=== PATIENT | male | born 1950 | race Caucasian/White ===

== ENCOUNTER 2022-07-13 08:54 | Inpatient (IN) ==
[2022-07-13] MEDS ORDERED: SODIUM CHLORIDE 0.9% 1000ML 1,000 ML IV STA (09:07)
--- NOTE | 2022-07-13 09:12 | Emergency Department Note ---
Impression & Plan Elevated troponin ADMIT ED Provider Note HPI: The patient is a 71-year-old gentleman with history of insulin-dependent diabetes, who presents emergency department chief complaint of weakness and diminished appetite. Patient states that for the past 2 weeks he has had a sensation that he "cannot eat". Patient states he has not had any pain, has not had any vomiting, states he has not felt hungry during this time. He states he has been following his insulin regimen the way it is prescribed. Patient denies any bloody stools or hematemesis, on arrival here to the ED the patient is hemodynamically stable, he is in no acute distress on my initial assessment. ROS: - Per HPI *Outpatient medications and allergy history reviewed. *Pertinent external medical records reviewed. PE: General: Alert HEENT: Normocephalic, trachea midline Eyes: Extraocular eye movement is intact, no scleral erythema Pulmonary: Clear to auscultation bilaterally, no wheezing Cardio: Regular rate and rhythm GI: Abdomen is soft, nontender : No suprapubic tenderness MSK: No evidence of trauma or malformation of the extremities, no edema Skin: No evidence of rash Neuro: Alert, no focal deficits Psychiatric: Cooperative diagnostic assistant: (As interpreted by myself): - An order was placed for continuous cardiac monitoring - Patient was noted to be in sinus rhythm with a rate of 90 EKG: (As interpreted by myself): Rate: 87 Rhythm: Normal sinus rhythm Intervals: QTc 527, otherwise within normal limits ST changes: No ST elevation Time: 09 Interventions provided in ED: -IV fluid bolus, IV ceftriaxone Medical Decision Making: Patient presented to the emergency department with symptoms of some generalized weakness, states he has had some diminished appetite and weight loss over the past several weeks. On arrival here to the ED the patient is hemodynamically stable. IV was established and lab work obtained, patient was placed on adjudication specialist. Lab work shows multiple abnormalities including leukocytosis of 17.9, mild anemia at 11.8, hyponatremia 126, hypochloremia at 89, patient's BUN is also slightly elevated at 35, glucose is 254 (patient is a known diabetic). In addition, troponin elevation at 50.3. Patient denies any exertional symptoms of chest pain or shortness of breath recently, denies any current chest pain or shortness of breath. EKG does not show any acute ischemic changes. CT imaging of the abdomen pelvis was obtained that does not show any acute surgical abnormality. On my reassessment patient states that he feels at b aseline, denies any focal complaint of pain. Urinalysis did return concerning for infection, both nitrite and leukocyte esterase positive, will send for culture and patient will be treated with ceftriaxone given his history of diabetes in addition to significant leukocytosis. Given the patient's multiple abnormalities on lab work and urinalysis, I feel he would benefit from admission. His symptoms may be secondary to his hyponatremia or ongoing infection. [facility] hospitalist service was consulted, case was discussed with the on-call midlevel provider, and patient was placed for admission in stable condition. Consultants: Hospitalist service, [facility] Disposition discussion held by myself with: Patient Diagnosis: 1. Urinary tract infection, acute 2. Leukocytosis 3. Elevated BUN 4. Hyponatremia, acute 5. Hyperglycemia without DKA 6. Elevated high-sensitivity troponin level Disposition: Admission Rob Zaragoza DO Emergency Medicine Allergies Allergies Allergy/AdvReac Type Severity Reaction Status Date / Time No Known Allergies Allergy Mild Unverified 07/13/22 09:58 Home Meds Home Medications Medication Instructions Recorded Confirmed aspirin 81 mg capsule 81 mg PO DAILY 07/13/22 07/13/22 hydrochlorothiazide 12.5 mg capsule 12.5 mg PO BID 07/13/22 07/13/22 insulin NPH isoph U-100 human 100 14 unit subcut BID 07/13/22 07/13/22 unit/mL subcutaneous suspension (Novolin N NPH U-100 Insulin isophane) insulin regular human 100 unit/mL 6 unit subcut QDD 07/13/22 07/13/22 injection solution (Novolin R Regular U-100 Insulin) insulin regular human 100 unit/mL 8 unit subcut QAM 07/13/22 07/13/22 injection solution (Novolin R Regular U-100 Insulin) lisinopril 30 mg tablet 30 mg PO QAM 07/13/22 07/13/22 metformin 500 mg tablet,extended 1,000 mg PO QDD 07/13/22 07/13/22 release 24 hr pravastatin 10 mg tablet 10 mg PO QAM 07/13/22 07/13/22 vitamins A,C,A-ryru-ukfoow 2,148 1 tab PO QAM 07/13/22 07/13/22 mcg-113 mg-45 mg-17.4 mg tablet (PreserVision AREDS) Results & Data (ED) Vital Signs Vital Signs - 24 hr 07/13/22 09:01 07/13/22 09:39 07/13/22 09:25 Temperature 37.6 C H Temperature Source Temporal Artery Scan Pulse Rate 90 86 Pulse Rhythm Regular Pulse Strength Normal Respiratory Rate 18 Respiratory Effort / Characteristics Non-Labored Spontaneous Respiratory Depth Normal Respiratory Pattern Regular Blood Pressure 108/62 Blood Pressure Mean 77 Blood Pressure Position Sitting Pulse Oximetry 98 95 Oxygen Delivery Method Room Air Room Air Sepsis Recent Fever Within 48 Hours No Sepsis New/Unexplained Change in Mental Status No Sepsis Action Taken by Nursing No Action Required Laboratory Data 07/13/22 09:30 07/13/22 09:30 Lab Results 07/13/22 07/13/22 07/13/22 Range/Units 09:30 09:30 09:30 WBC 17.96 H (4.8-10.8) K/ul RBC 3.97 L (4.70-6.10) M/uL Hgb 11.8 L (14.0-18.0) g/dl Hct 34.5 L (42.0-52.0) % MCV 86.9 (80.0-100.0) fL MCH 29.7 (25.0-34.0) pg MCHC 34.2 (32.0-36.0) g/dL RDW Std Deviation 40.1 (36.4-46.3) fL RDW Coeff of Ariane 12.6 (11.5-14.5) % Plt Count 327 (130-400) K/uL MPV 11.0 (9.4-12.4) fL Immature Gran % (Auto) 1.1 % Neut % (Auto) 85.6 % Lymph % (Auto) 6.0 % [place] % (Auto) 6.3 % Eos % (Auto) 0.7 % Baso % (Auto) 0.3 % Neut # (Auto) 15.39 H (1.40-6.50) K/uL Lymph # (Auto) 1.07 L (1.2-3.4) K/uL [place] # (Auto) 1.13 H (0.11-0.59) K/uL Eos # (Auto) 0.13 (0-0.50) K/uL Baso # (Auto) 0.05 (0-0.2) K/uL Immature Gran # (Auto) 0.19 (0.01-0.20) K/uL PT 12.2 H (9.0-12.0) Seconds INR 1.2 H (0.9-1.1) Sodium 126 L (136-145) mmol/L Potassium 4.2 (3.5-5.1) mmol/L Chloride 89 L (98-107) mmol/L Carbon Dioxide 26 (21-32) mmol/L Anion Gap 11 (3-11) BUN 35 H (6-23) mg/dl Creatinine 1.35 (0.6-1.4) mg/dl Est Cr Clr Drug Dosing 55.5 ml/min Est GFR ( Amer) 61.2 ml/min Est GFR (Non-Af Amer) 52.8 ml/min BUN/Creatinine Ratio 25.9 H (10-20) Glucose 254 H (70-99(Fasting)) mg/dl Calcium 8.6 (8.5-10.1) mg/dl Total Bilirubin 1.7 H (0.2-1.0) mg/dl AST 29 (13-39) U/L ALT 33 (7-52) U/L Alkaline Phosphatase 103 (34-104) U/L Troponin I High Sens 50.3 H* (0-20) pg/ml Total Protein 6.5 (6.0-8.3) gm/dl Albumin 2.9 L (3.4-5.0) gm/dl Globulin 3.6 (2.5-4.0) gm/dl Albumin/Globulin Ratio 0.8 L (0.9-2) Lipase 5 L (11-82) U/L Urine Color Urine Appearance (Clear) Urine pH (4.5-7.5) Ur Specific [place] (1.000-1.030) Urine Protein (Negative) Urine Glucose (UA) (Negative) Urine Ketones (Negative) Urine Blood (Negative) Urine Nitrite (Negative) Urine Bilirubin (Negative) Urine Urobilinogen (Negative) Ur Leukocyte Esterase (Negative) SARS-CoV-2 (PCR) (Negative) Influenza Type A (PCR) (Neg) Influenza Type B (PCR) (Neg) RSV (RT-PCR) (Neg) 07/13/22 07/13/22 Range/Units 09:37 10:48 WBC (4.8-10.8) K/ul RBC (4.70-6.10) M/uL Hgb (14.0-18.0) g/dl Hct (42.0-52.0) % MCV (80.0-100.0) fL MCH (25.0-34.0) pg MCHC (32.0-36.0) g/dL RDW Std Deviation (36.4-46.3) fL RDW Coeff of Ariane (11.5-14.5) % Plt Count (130-400) K/uL MPV (9.4-12.4) fL Immature Gran % (Auto) % Neut % (Auto) % Lymph % (Auto) % [place] % (Auto) % Eos % (Auto) % Baso % (Auto) % Neut # (Auto) (1.40-6.50) K/uL Lymph # (Auto) (1.2-3.4) K/uL [place] # (Auto) (0.11-0.59) K/uL Eos # (Auto) (0-0.50) K/uL Baso # (Auto) (0-0.2) K/uL Immature Gran # (Auto) (0.01-0.20) K/uL PT (9.0-12.0) Seconds INR (0.9-1.1) Sodium (136-145) mmol/L Potassium (3.5-5.1) mmol/L Chloride (98-107) mmol/L Carbon Dioxide (21-32) mmol/L Anion Gap (3-11) BUN (6-23) mg/dl Creatinine (0.6-1.4) mg/dl Est Cr Clr Drug Dosing ml/min Est GFR ( Amer) ml/min Est GFR (Non-Af Amer) ml/min BUN/Creatinine Ratio (10-20) Glucose (70-99(Fasting)) mg/dl Calcium (8.5-10.1) mg/dl Total Bilirubin (0.2-1.0) mg/dl AST (13-39) U/L ALT (7-52) U/L Alkaline Phosphatase (34-104) U/L Troponin I High Sens (0-20) pg/ml Total Protein (6.0-8.3) gm/dl Albumin (3.4-5.0) gm/dl Globulin (2.5-4.0) gm/dl Albumin/Globulin Ratio (0.9-2) Lipase (11-82) U/L Urine Color [place] Urine Appearance Cloudy A (Clear) Urine pH 5.0 (4.5-7.5) Ur Specific [place] 1.021 (1.000-1.030) Urine Protein Trace H (Negative) Urine Glucose (UA) Trace H (Negative) Urine Ketones 1+ H (Negative) Urine Blood Negative (Negative) Urine Nitrite Positive A (Negative) Urine Bilirubin 1+ H (Negative) Urine Urobilinogen Positive H (Negative) Ur Leukocyte Esterase Trace H (Negative) SARS-CoV-2 (PCR) NEGATIVE (Negative) Influenza Type A (PCR) Negative (Neg) Influenza Type B (PCR) Negative (Neg) RSV (RT-PCR) Negative (Neg) Administered Medications Discontinued Medications Sodium Chloride (Nss 1000ml) 1,000 mls @ 999 mls/hr IV .Q1H1M STA Stop: 07/13/22 10:07 Last Infusion: 07/13/22 11:06 Dose: 0 mls/hr Documented By: Admin: 07/13/22 10:05 Dose: 999 mls/hr Documented By: VERONICA Ioversol (Optiray 350 100ml) 88 ml IV ONCE ONE Stop: 07/13/22 10:57 Last Admin: 07/13/22 10:56 Dose: 88 ml Documented By: EDK Imaging Data Radiologist's Impression: Abdomen/Pelvis CT 07/13/22 09:25 CT OF THE ABDOMEN AND PELVIS WITH CONTRAST CLINICAL HISTORY: Nausea and weight loss. COMPARISON STUDY: None. TECHNIQUE: Following IV administration of 88 mL of Optiray, axial images of the abdomen and pelvis were obtained from the lung bases to the proximal femurs. Images were reviewed in the axial, sagittal, and coronal planes. IV contrast was administered without complication. Automated exposure control was utilized for the study. A dose lowering technique was utilized adhering to the principles of ALARA. CT DOSE: 812.07 mGy.cm FINDINGS: Lung bases are unremarkable. There is apparent circumferential wall thickening of the esophagus. A small hiatal hernia is present. Liver, spleen, adrenal glands, right kidney are unremarkable. There is no pneumatosis, free air or portal venous gas. A cyst within the upper pole of the left kidney is noted. Pancreatic glandular atrophy is noted. No biliary or pancreatic ductal dilatation is present. The appendix is normal. The caliber and wall thickness of small and large bowel are normal. There is no lymphadenopathy. There is no ascites. No suspicious osseous lesions are present. Right femoral internal fixation is incidentally noted. IMPRESSION: 1. No acute process within the abdomen or pelvis. 2. Circumferential wall thickening of the distal esophagus. Although this could be due to underdistention, esophagitis could appear similar. Small hiatal hernia. 3. No bowel obstruction. No bowel wall thickening. ACT 112: Negative or not required by law. Electronically signed by: Russell Jeffries M.D. 07/13/2022 11:22 AM Chest X-Ray 07/13/22 10:49 XR chest 1V portable CLINICAL HISTORY: weakness COMPARISON STUDY: Chest radiograph June 15, 2009. FINDINGS: Lung volumes are normal. Lungs are clear. There is no pneumothorax or pleural effusion. Cardiac size is stable. Mediastinal contours are normal. There is no evidence for pulmonary edema. IMPRESSION: No acute cardiopulmonary findings. ACT 112: Negative or not required by law. Electronically signed by: Russell Jeffries M.D. 07/13/2022 11:24 AM Discharge Plan Visit Data Chief Complaint: Illness Stated Complaint: UNABLE TO EAT FOR 2 WEEKS, LETHARGIC ED Provider: Rob Zaragoza Discharge Problem: Elevated troponin Forms Stand Alone Forms: My [facility] Prescriptions Prescriptions: No Action pravastatin 10 mg tablet 10 mg PO QAM Novolin R Regular U-100 Insuln 100 unit/mL solution 6 unit subcut QDD Novolin R Regular U-100 Insuln 100 unit/mL solution 8 unit subcut QAM Novolin N NPH U-100 Insulin 100 unit/mL suspension 14 unit SUBCUT BID hydrochlorothiazide 12.5 mg capsule 12.5 mg PO BID lisinopril 30 mg tablet 30 mg PO QAM metformin 500 mg tablet extended release 24 hr 1,000 mg PO QDD PreserVision AREDS 2,148 mcg-113 mg-45 mg-17.4mg Tablet 1 tab PO QAM Rx Instructions: administer with AM and PM meals aspirin 81 mg Capsule 81 mg PO DAILY Referrals Referrals: PCP,NO [Physician] -
[2022-07-13 10:02] LABS: Basophils # (auto) 0.05 K/uL (0-0.2); Basophils % (auto) 0.3 %; Eosinophils # (auto) 0.13 K/uL (0-0.50); Eosinophils % (auto) 0.7 %; Hematocrit (blood only) 34.5 % (42.0-52.0); Hemoglobin 11.8 g/dl (14.0-18.0); Immature Granulocytes # (auto) 0.19 K/uL (0.01-0.20); Immature Granulocytes % (auto) 1.1 %; Lymphocytes # (auto) 1.07 K/uL (1.2-3.4); Mean Corpuscular Hemoglobin 29.7 pg (25.0-34.0); Mean Corpuscular Hgb Conc 34.2 g/dL (32.0-36.0); Mean Corpuscular Volume 86.9 fL (80.0-100.0); Monocytes # (auto) 1.13 K/uL (0.11-0.59); Monocytes % (auto) 6.3 %; Neutrophils # (auto) 15.39 K/uL (1.40-6.50); Neutrophils % (auto) 85.6 %; Platelet Count 327 K/uL (130-400); RDW Coefficient of Variation 12.6 % (11.5-14.5); RDW Standard Deviation 40.1 fL (36.4-46.3); Red Blood Count 3.97 M/uL (4.70-6.10); White Blood Count 17.96 K/ul (4.8-10.8)
[2022-07-13 10:23] LABS: Albumin Globulin Ratio 0.8 (0.9-2); Albumin Level 2.9 gm/dl (3.4-5.0); BUN Creatinine Ratio 25.9 (10-20); Bilirubin,Total 1.7 mg/dl (0.2-1.0); Calcium 8.6 mg/dl (8.5-10.1); Creatinine Clr Calc Pharmacy 55.5 ml/min; Est GFR (African American) 61.2 ml/min; Est GFR (Non-African American) 52.8 ml/min; Globulin 3.6 gm/dl (2.5-4.0); Potassium 4.2 mmol/L (3.5-5.1); Total Protein 6.5 gm/dl (6.0-8.3)
[2022-07-13 10:27] LABS: Influenza A virus by PCR Negative (Neg); Influenza B virus by PCR Negative (Neg); RSV by PCR Negative (Neg); SARS CoV2 RNA(COVID-19) Ceph NEGATIVE (Negative)
[2022-07-13 10:31] LABS: Troponin I High Sensitivity 50.3 pg/ml (0-20)
[2022-07-13 10:32] LABS: INR 1.2 (0.9-1.1); Prothrombin Time 12.2 Seconds (9.0-12.0)
[2022-07-13] MEDS ORDERED: OPTIRAY 350 100ml IV ONE (10:56)
[2022-07-13 11:16] LABS: Appearance Urine Cloudy (Clear); Bacteria Urine Automated Negative (Negative); Blood Urine Negative (Negative); Color Urine Orange; Glucose Urine UA Trace (Negative); Ketones Urine 1+ (Negative); Leukocyte Esterase Urine Trace (Negative); Nitrite Urine Positive (Negative); Protein Urine Trace (Negative); Specific Gravity Urine 1.021 (1.000-1.030); Urobilinogen Urine Positive (Negative)
--- NOTE | 2022-07-13 11:23 | CT Scan Report ---
CT OF THE ABDOMEN AND PELVIS WITH CONTRAST CLINICAL HISTORY: Nausea and weight loss. COMPARISON STUDY: None. TECHNIQUE: Following IV administration of 88 mL of Optiray, axial images of the abdomen and pelvis we re obtained from the lung bases to the proximal femurs. Images were reviewed in the axial, sagittal, and coronal planes. IV contrast was administered without complication. Automated exposure control wa s utilized for the study. A dose lowering technique was utilized adhering to the principles of ALARA . CT DOSE: 812.07 mGy.cm FINDINGS: Lung bases are unremarkable. There is apparent circumferential wall thickening of the esoph karen. A small hiatal hernia is present. Liver, spleen, adrenal glands, right kidney are unremarkable. There is no pneumatosis, free air or portal venous gas. A cyst within the upper pole of the left kid aguilar is noted. Pancreatic glandular atrophy is noted. No biliary or pancreatic ductal dilatation is pr esent. The appendix is normal. The caliber and wall thickness of small and large bowel are normal. Th ere is no lymphadenopathy. There is no ascites. No suspicious osseous lesions are present. Right femo ral internal fixation is incidentally noted. IMPRESSION: 1. No acute process within the abdomen or pelvis. 2. Circumferential wall thickening of the distal esophagus. Although this could be due to underdisten tion, esophagitis could appear similar. Small hiatal hernia. 3. No bowel obstruction. No bowel wall thickening. ACT 112: Negative or not required by law. Electronically signed by: Russell Jeffries M.D. 07/13/2022 11:22 AM
--- NOTE | 2022-07-13 11:26 | XRay Report ---
XR chest 1V portable CLINICAL HISTORY: weakness COMPARISON STUDY: Chest radiograph June 15, 2009. FINDINGS: Lung volumes are normal. Lungs are clear. There is no pneumothorax or pleural effusion. Car diac size is stable. Mediastinal contours are normal. There is no evidence for pulmonary edema. IMPRESSION: No acute cardiopulmonary findings. ACT 112: Negative or not required by law. Electronically signed by: Russell Jeffries M.D. 07/13/2022 11:24 AM
[2022-07-13 11:27] LABS: Bilirubin Urine 1+ (Negative)
[2022-07-13] MEDS ORDERED: cefTRIAXone SODIUM 2,000 MG/70 ML BAG IV STA (11:30)
--- NOTE | 2022-07-13 11:38 | Electrocardiogram Report ---
Test Reason : Blood Pressure : / mmHG Vent. Rate : 087 BPM Atrial Rate : 087 BPM P-R Int : 134 ms QRS Dur : 076 ms QT Int : 438 ms P-R-T Axes : 054 058 002 degrees QTc Int : 527 ms Normal sinus rhythm Possible Inferior infarct , age undetermined Prolonged QT Abnormal ECG When compared with ECG of 15-JUN-2009 10:06, Vent. rate has increased BY 30 BPM Borderline criteria for Inferior infarct are now Present T wave inversion now evident in Inferior leads QT has lengthened Confirmed by Parrish Osorio ([id number]) on 07/13/2022 11:37:44 AM Referred By: REFERRED SELF Confirmed By:Dennys Osorio
[2022-07-13 11:56] LABS: Cast Urine Automated >30 /lpf (0-5)
--- NOTE | 2022-07-13 12:06 | History & Physical Report ---
Date of Service July 13, 2022 Assessment & Plan (1) Acute hyponatremia: (2) Leukocytosis: (3) Poor appetite: (4) Elevated troponin: (5) T2DM (type 2 diabetes mellitus): (6) HTN (hypertension): (7) HLD (hyperlipidemia): Plan This is a 71-year-old male who has significant past medical history of insulin- dependent T2DM, HTN, HLD, idiopathic thrombocytopenia who presents to ED secondary to generalized weakness and decreased appetite x2 weeks. Acute hyponatremia Poor appetite x2 weeks Circumferential wall thickening of esophagus on CT scan Generalized weakness Admit to med telemetry Corrected sodium for hyperglycemia is 128 No prior history of hyponatremia Likely correlates to lack of appetite and poor intake over the last 2 weeks; however uncertain what is driving that at this time, pt reports started day after flu shot Obtain urine sodium, urine osm, serum osm hold HCTZ give gentle maintenance fluid for now 80 cc/h x 2 L PT/OT consult retail supervisor, low albumin, obtain prealb in a.m. Leukocytosis Abnormal urinalysis Urine shows positive nitrites, leukocyte esterase but negative bacteria He received 2 g Rocephin in ED, will continue for now until blood and urine culture results Urine culture likely negative, will continue IV antibiotics due to leukocytosis until infection ruled out Elevated troponin Patient denies chest pain, shortness of breath or exertional symptoms EKG was with t wave inversion II and III We will trend troponin for now repeat ecg in a.m. echocardiogram Prolonged QTC avoid QTc prolonging meds Anemia H&H 11.8 and 34.5 with normal indices Obtain anemia panel in a.m. Abnormal CT scan Circumferential wall thickening of esophagus, possible esophagitis Could be possible source of patient's decreased intake although denies any GERD symptoms Start PPI oral once daily Consider GI referral as outpatient for endoscopy if persists Insulin-dependent T2DM Continue NPH and NovoLog per protocol Last A1c 7.3 on 06/29/2022 Hold metformin Hypertension Continue lisinopril but hold HCTZ in setting of hyponatremia Hyperlipidemia Continue statin DVT px: SQ Lovenox Dispo: med tele, PT/OT consults placed FULL CODE PCP: Dr. Allison Pt was seen and examined in collaboration with Dr. Mata, please see addendum History of Present Illness Chief Complaint: Generalized weakness decreased appetite x2 weeks. Primary Care Provider: Milka Allison MD This is a 71-year-old male who has significant past medical history of insulin-dependent T2DM, HTN, HLD, idiopathic thrombocytopenia who presents to ED secondary to generalized weakness and decreased appetite x2 weeks. 2 weeks ago today he got a flu shot. The next day he woke up and felt like he was sick. Since then he has been having a difficult time eating and that has lead to general weakness. He denies dysphagia and generally just has no appetite. He denies f/c/s, REEVES, dizziness, lightheaded, chest pain, sob, edema, cough, URI sx, nausea, abd pain or diarrhea, and myalgia/arthralgia. He hasn't moved his bowels in 4-5 days. He denies any dysuria, hematuria or increased urinary urgent. He lives with his brother. Typically at home he is able to ambulate w/o assist. Hx of heart burn in past but not recently. ED patient made hemodynamically stable. Lab work notable for significant leukocytosis at 17.96 with predominant neutrophilia, H&H 11.8 and 34.5, sodium 126, chloride 89, BUN 35, creatinine 1.35, glucose 254, total bilirubin 1.7, elevated troponin 50.3 albumin at 2.9. Initial urinalysis revealing possible UTI. CT abdomen pelvis revealed circumferential wall thickening distal esophagus, although this could be underdistention esophagitis could appear similar. Chest x-ray revealed no cardiopulmonary abnormality. He received IV fluids as well as IV ceftriaxone. Allergies Allergy/AdvReac Type Severity Reaction Status Date / Time No Known Allergies Allergy Mild Unverified 07/13/22 09:58 Home Medications Medication Instructions Recorded Confirmed Type aspirin 81 mg capsule 81 mg PO DAILY 07/13/22 07/13/22 History hydrochlorothiazide 12.5 mg capsule 12.5 mg PO DAILY 07/13/22 07/13/22 History insulin NPH isoph U-100 human 100 14 unit subcut BID 07/13/22 07/13/22 History unit/mL subcutaneous suspension (Novolin N NPH U-100 Insulin isophane) insulin regular human 100 unit/mL 6 unit subcut QDD 07/13/22 07/13/22 History injection solution (Novolin R Regular U-100 Insulin) insulin regular human 100 unit/mL 8 unit subcut QAM 07/13/22 07/13/22 History injection solution (Novolin R Regular U-100 Insulin) lisinopril 30 mg tablet 30 mg PO QAM 07/13/22 07/13/22 History metformin 500 mg tablet,extended 1,000 mg PO QDD 07/13/22 07/13/22 History release 24 hr pravastatin 10 mg tablet 10 mg PO QAM 07/13/22 07/13/22 History vitamins A,C,H-sszp-oaywch 2,148 1 tab PO QAM 07/13/22 07/13/22 History mcg-113 mg-45 mg-17.4 mg tablet (PreserVision AREDS) Past Med/Surg History Medical History (Updated 07/13/22 @ 13:16 by Amee Le PA-C) HLD (hyperlipidemia) HTN (hypertension) T2DM (type 2 diabetes mellitus) Thrombocytopenia Surgical History (Updated 07/13/22 @ 12:03 by Amee Le PA-C) Hx of fracture of femur Family History (Updated 07/13/22 @ 12:20 by Amee Le PA-C) Mother Breast cancer Father Coronary heart disease Social History (Updated 07/13/22 @ 12:17 by Amee Le PA-C) Smoking Status: Former smoker Second Hand Exposure: Yes; Do You Dip or Chew Tobacco: Yes; Tobacco Cessation Education Requested by Patient: Yes Hx Alcohol Use: No Hx Substance Use: No Preferred Language: Iranian Communication Ability: Effective Jacquard Loom Heddles Tier Required: No Beliefs That Will Affect Care: None Current Living Situation: Other Current Living Situation Comment: lives with brother Zach Other Information That Helps Us Care for You: No Feels Safe at Home: Yes Safety Concerns: Feels Safe At This Time Assistive Devices: Glasses Review of Systems Review of Systems: All systems reviewed & are unremarkable except as noted in HPI & below Physical Exam Physical Exam: Please refer to Dr. Mata addendum for physical exam findings. Results & Data Results & Data ([facility]) Vital Signs (Past 12 Hours) Vital Signs Temp Pulse Resp BP Pulse Ox O2 Del Method 07/13/22 09:25 86 07/13/22 09:39 95 Room Air 07/13/22 09:01 37.6 C H 90 18 108/62 98 Room Air Diagnostic Findings Abdomen/Pelvis CT 07/13/22 09:25 CT OF THE ABDOMEN AND PELVIS WITH CONTRAST CLINICAL HISTORY: Nausea and weight loss. COMPARISON STUDY: None. TECHNIQUE: Following IV administration of 88 mL of Optiray, axial images of the abdomen and pelvis were obtained from the lung bases to the proximal femurs. Images were reviewed in the axial, sagittal, and coronal planes. IV contrast was administered without complication. Automated exposure control was utilized for the study. A dose lowering technique was utilized adhering to the principles of ALARA. CT DOSE: 812.07 mGy.cm FINDINGS: Lung bases are unremarkable. There is apparent circumferential wall thickening of the esophagus. A small hiatal hernia is present. Liver, spleen, adrenal glands, right kidney are unremarkable. There is no pneumatosis, free air or portal venous gas. A cyst within the upper pole of the left kidney is noted. Pancreatic glandular atrophy is noted. No biliary or pancreatic ductal dilatation is present. The appendix is normal. The caliber and wall thickness of small and large bowel are normal. There is no lymphadenopathy. There is no ascites. No suspicious osseous lesions are present. Right femoral internal fixation is incidentally noted. IMPRESSION: 1. No acute process within the abdomen or pelvis. 2. Circumferential wall thickening of the distal esophagus. Although this could be due to underdistention, esophagitis could appear similar. Small hiatal hernia. 3. No bowel obstruction. No bowel wall thickening. ACT 112: Negative or not required by law. Electronically signed by: Russell Jeffries M.D. 07/13/2022 11:22 AM Chest X-Ray 07/13/22 10:49 XR chest 1V portable CLINICAL HISTORY: weakness COMPARISON STUDY: Chest radiograph June 15, 2009. FINDINGS: Lung volumes are normal. Lungs are clear. There is no pneumothorax or pleural effusion. Cardiac size is stable. Mediastinal contours are normal. There is no evidence for pulmonary edema. IMPRESSION: No acute cardiopulmonary findings. ACT 112: Negative or not required by law. Electronically signed by: Russell Jeffries M.D. 07/13/2022 11:24 AM Medications Administered Medication List Discontinued Medications Sodium Chloride (Nss 1000ml) 1,000 mls @ 999 mls/hr IV .Q1H1M STA Stop: 07/13/22 10:07 Last Infusion: 07/13/22 11:06 Dose: 0 mls/hr Documented By: Admin: 07/13/22 10:05 Dose: 999 mls/hr Documented By: VERONICA Ioversol (Optiray 350 100ml) 88 ml IV ONCE ONE Stop: 07/13/22 10:57 Last Admin: 07/13/22 10:56 Dose: 88 ml Documented By: EDK ECG Rate (beats per minute): 87 Rhythm: normal sinus Additional Comments: qtc 527ms, QTC prolongation, no st t wave change COVID-19 Results Results COVID-19 Adm Lab Results: RBC 3.97 M/uL (4.70-6.10) L 07/13/22 WBC 17.96 K/ul (4.8-10.8) H 07/13/22 Hgb 11.8 g/dl (14.0-18.0) L 07/13/22 Hct 34.5 % (42.0-52.0) L 07/13/22 Plt Count 327 K/uL (130-400) 07/13/22 Neutrophils (%) (Auto) 85.6 % 07/13/22 Lymphocytes (%) (Auto) 6.0 % 07/13/22 Monocytes # (Auto) 1.13 K/uL (0.11-0.59) H 07/13/22 Eosinophils # (Auto) 0.13 K/uL (0-0.50) 07/13/22 Immature Granulocyte % (Auto) 1.1 % 07/13/22 Neutrophils # (Auto) 15.39 K/uL (1.40-6.50) H 07/13/22 Lymphocytes # (Auto) 1.07 K/uL (1.2-3.4) L 07/13/22 Monocytes # (Auto) 1.13 K/uL (0.11-0.59) H 07/13/22 Eosinophils # (Auto) 0.13 K/uL (0-0.50) 07/13/22 Basophils # (Auto) 0.05 K/uL (0-0.2) 07/13/22 Immature Granulocyte # (Auto) 0.19 K/uL (0.01-0.20) 3 Na 126 mmol/L (136-145) L 07/13/22 K 4.2 mmol/L (3.5-5.1) 07/13/22 Cl 89 mmol/L (98-107) L 07/13/22 CO2 26 mmol/L (21-32) 07/13/22 Anion Gap 11 (3-11) 07/13/22 BUN 35 mg/dl (6-23) H 07/13/22 Creatinine 1.35 mg/dl (0.6-1.4) 07/13/22 BUN/Creatinine Ratio 25.9 (10-20) H 07/13/22 Glucose Level 254 mg/dl (70-99(Fasting)) H 07/13/22 Ca 8.6 mg/dl (8.5-10.1) 07/13/22 Total Bilirubin 1.7 mg/dl (0.2-1.0) H 07/13/22 Direct Bilirubin 0.9 mg/dl (0-0.2) H 07/13/22 AST/SGOT 29 U/L (13-39) 07/13/22 ALT/SGPT 33 U/L (7-52) 07/13/22 Alkaline Phosphatase 103 U/L (34-104) 07/13/22 Total Protein 6.5 gm/dl (6.0-8.3) 07/13/22 Albumin 2.9 gm/dl (3.4-5.0) L 07/13/22 Globulin 3.6 gm/dl (2.5-4.0) 07/13/22 Albumin/Globulin Ratio 0.8 (0.9-2) L 07/13/22 INR 1.2 (0.9-1.1) H 07/13/22 COVID-19 PCR NEGATIVE (Negative) 07/13/22 Influenza Virus Type A (PCR) Negative (Neg) 07/13/22 Influenza Virus Type B (PCR) Negative (Neg) 07/13/22 Chest X-Ray 07/13/22 Code Status & VTE Plan Code Status FULL CODE VTE Prophylaxis Plan VTE Prophylaxis will be ordered: Yes Supervising Physician Co-Signing Physician Notes Date of Service: July 13, 2022 History and physical exam performed by me. History notable for 71-year-old man With history of diabetes on insulin, hypertension who presents with generalized weakness and anorexia over the past 2 weeks. History provided by patient and brother who was at bedside. Reports mildly improper diet after getting flu shot 2 weeks ago. Reports poor appetite since. Denies any dysphagia, odynophagia. Denied chest pain, shortness of breath. Denied nausea, vomiting, diarrhea. Reports constipation. Reports reduced urine output. Denies dysuria, frequency urgency. Denied fevers or chills. On exam, General: Elderly man in no distress Eyes: PERRL, conjunctivae normal, not pale, anicteric sclerae, EOM intact bilaterally ENMT: External ear and nose normal, oropharynx normal Neck: Normal visual inspection, no tracheal deviation, no swelling noted Respiratory: Normal respiratory effort, no respiratory distress, lungs clear to auscultation, no crackles and no wheezes Cardiovascular: Pulse is RRR. Heart Sounds: normal S1 and normal S2; no murmurs. Vessels: normal peripheral pulses Extremities: no pedal edema Chest (Breasts): Chest: normal inspection of chest Gastrointestinal (Abdomen): Abdomen is not distended, soft, non-tender to palpation, no guarding, no palpable hepatosplenomegaly, normal bowel sounds Musculoskeletal: No cyanosis or clubbing, all extremities motor strength 5/5 Genitourinary: Skin: No rash noted on gross inspection, No ulcers noted Neurologic: Alert and oriented x 3, No focal weakness, sensation grossly intact Psychiatric: Alert and oriented x 3, euthymic affect, no depressed affect Lymphatic: No cervical and axillary lymphadenopathy Labs notable for WBC of 17.9, hemoglobin of 11.8, INR of 1.2, sodium of 126 [128 when corrected for hyperglycemia], total bilirubin of 1.7, direct of 0.9, troponin of 50. UA noted positive nitrite, trace leukocyte esterase, +1 ketones, trace urine glucose, WBC of 1-5. Urine osmolality is 477, serum osmolality is 283, urine sodium is 23. Chest x-ray did not show any acute abnormalities Abdominal CT noted circumferential wall thickening of distal esophagus. Generalized weakness. Hyponatremia. Possible UTI. Hyponatremia may be due to poor intake. Give maintenance IV fluids. Monitor sodium. My review of his EKG showed TWI in inferior lead Trop is 50 Telemetry monitoring. Trend troponin. Echo Check urine culture. IV ceftriaxone. Reported occasional heartburns but none in the past [address] findings of possible esophagitis. We will start PPI and monitor. Other plans as detailed by Amee Le PA-C
[2022-07-13] MEDS: SODIUM CHLORIDE 0.9% 1000ML 1,000 ML IV SCH ×2 (13:32→14:10)
[2022-07-13] MEDS ORDERED: MAGNESIUM HYDROXIDE SUSP 30 ML UDC PO PRN (14:11)
[2022-07-13] MEDS ORDERED: CARBOHYDRATES FOR HYPOGLYCEMIA PO PRN (14:11)
[2022-07-13] MEDS ORDERED: GLUCOSE 10 TAB/TUBE PO PRN (14:11)
[2022-07-13] MEDS ORDERED: GLUCOSE 40% GEL 15 GM TUBE PO PRN (14:11)
[2022-07-13] MEDS ORDERED: POLYETHYLENE (MIRALAX) 17 GM PACK PO PRN (14:11)
[2022-07-13] MEDS ORDERED: DEXTROSE 50% 50 ML SYRINGE IV PRN (14:11)
[2022-07-13] MEDS ORDERED: PROMETHAZINE HCL 6.25 MG in SODIUM CHLORIDE 0.9% 50 ML IV PRN (14:11)
[2022-07-13] MEDS ORDERED: GLUCAGON FOR INJ 1 MG VIAL SQ PRN (14:11)
[2022-07-13] MEDS ORDERED: ALUMINUM/MAGNESIUM SUSP 30 ML UDC PO PRN (14:11)
--- NOTE | 2022-07-13 14:43 | Communication Note ---
Date of Service: July 13, 2022 History and physical exam performed by me. History notable for 71-year-old man With history of diabetes on insulin, hypertension who presents with generalized weakness and anorexia over the past 2 weeks. History provided by patient and brother who was at bedside. Reports mildly improper diet after getting flu shot 2 weeks ago. Reports poor appetite since. Denies any dysphagia, odynophagia. Denied chest pain, shortness of breath. Denied nausea, vomiting, diarrhea. Reports constipation. Reports reduced urine output. Denies dysuria, frequency urgency. Denied fevers or chills. On exam, General: Elderly man in no distress Eyes: PERRL, conjunctivae normal, not pale, anicteric sclerae, EOM intact bilaterally ENMT: External ear and nose normal, oropharynx normal Neck: Normal visual inspection, no tracheal deviation, no swelling noted Respiratory: Normal respiratory effort, no respiratory distress, lungs clear to auscultation, no crackles and no wheezes Cardiovascular: Pulse is RRR. Heart Sounds: normal S1 and normal S2; no murmurs. Vessels: normal peripheral pulses Extremities: no pedal edema Chest (Breasts): Chest: normal inspection of chest Gastrointestinal (Abdomen): Abdomen is not distended, soft, non-tender to palpation, no guarding, no palpable hepatosplenomegaly, normal bowel sounds Musculoskeletal: No cyanosis or clubbing, all extremities motor strength 5/5 Genitourinary: Skin: No rash noted on gross inspection, No ulcers noted Neurologic: Alert and oriented x 3, No focal weakness, sensation grossly intact Psychiatric: Alert and oriented x 3, euthymic affect, no depressed affect Lymphatic: No cervical and axillary lymphadenopathy Labs notable for WBC of 17.9, hemoglobin of 11.8, INR of 1.2, sodium of 126 [128 when corrected for hyperglycemia], total bilirubin of 1.7, direct of 0.9, troponin of 50. UA noted positive nitrite, trace leukocyte esterase, +1 ketones, trace urine g lucose, WBC of 1-5. Urine osmolality is 477, serum osmolality is 283, urine sodium is 23. Chest x-ray did not show any acute abnormalities Abdominal CT noted circumferential wall thickening of distal esophagus. Generalized weakness. Hyponatremia. Possible UTI. Hyponatremia may be due to poor intake. Give maintenance IV fluids. Monitor sodium. My review of his EKG showed TWI in inferior lead Trop is 50 Telemetry monitoring. Trend troponin. Echo Check urine culture. IV ceftriaxone. Reported occasional heartburns but none in the past [address] findings of possible esophagitis. We will start PPI and monitor. Other plans as detailed by Amee Le PA-C
[2022-07-13] MEDS: DOCUSATE SODIUM/SENNA 50/8.6MG TAB PO SCH (15:16)
[2022-07-13] MEDS: PANTOprazole 40 MG TAB PO SCH (15:16)
[2022-07-13] MEDS: INSULIN ASPART PER UNIT SC SCH ×2 (17:13→21:18)
[2022-07-13] MEDS: ENOXAPARIN INJ 40 MG/0.4 ML SYR SQ SCH (21:21)
[2022-07-13] MEDS: INSULIN HUMAN NPH SQ SCH (22:18)
[2022-07-14 06:51] LABS: Basophils # (auto) 0.03 K/uL (0-0.2); Basophils % (auto) 0.2 %; Eosinophils # (auto) 0.28 K/uL (0-0.50); Eosinophils % (auto) 1.9 %; Hematocrit (blood only) 31.9 % (42.0-52.0); Hemoglobin 11.1 g/dl (14.0-18.0); Immature Granulocytes # (auto) 0.17 K/uL (0.01-0.20); Immature Granulocytes % (auto) 1.1 %; Lymphocytes # (auto) 0.94 K/uL (1.2-3.4); Lymphocytes % (auto) 6.3 %; Mean Corpuscular Hemoglobin 30.1 pg (25.0-34.0); Mean Corpuscular Hgb Conc 34.8 g/dL (32.0-36.0); Mean Corpuscular Volume 86.4 fL (80.0-100.0); Monocytes # (auto) 0.94 K/uL (0.11-0.59); Monocytes % (auto) 6.3 %; Neutrophils # (auto) 12.53 K/uL (1.40-6.50); Neutrophils % (auto) 84.2 %; Platelet Count 297 K/uL (130-400); RDW Coefficient of Variation 12.8 % (11.5-14.5); RDW Standard Deviation 40.2 fL (36.4-46.3); Red Blood Count 3.69 M/uL (4.70-6.10); White Blood Count 14.89 K/ul (4.8-10.8)
[2022-07-14 08:25] LABS: Alanine Aminotransferase 29 U/L (7-52); Albumin Globulin Ratio 0.8 (0.9-2); Albumin Level 2.5 gm/dl (3.4-5.0); Alkaline Phosphatase 93 U/L (34-104); Anion Gap 7 (3-11); Aspartate Aminotransferase 29 U/L (13-39); BUN Creatinine Ratio 26.2 (10-20); Bilirubin,Total 1.2 mg/dl (0.2-1.0); Blood Urea Nitrogen 22 mg/dl (6-23); Calcium 8.1 mg/dl (8.5-10.1); Carbon Dioxide 28 mmol/L (21-32); Chloride 95 mmol/L (98-107); Creatinine Clr Calc Pharmacy 88.9 ml/min; Est GFR (African American) 102.8 ml/min; Est GFR (Non-African American) 88.7 ml/min; Globulin 3.2 gm/dl (2.5-4.0); Glucose 202 mg/dl (70-99(Fasting)); Iron 18 mcg/dl (35-175); Magnesium 1.6 mg/dl (1.7-2.4); Potassium 4.1 mmol/L (3.5-5.1); Sodium 130 mmol/L (136-145); Total Protein 5.7 gm/dl (6.0-8.3); Transferrin < 95 mg/dl (200-360)
[2022-07-14] MEDS: PANTOprazole 40 MG TAB PO SCH ×2 (08:45→20:55)
[2022-07-14] MEDS: cefTRIAXone SODIUM 2,000 MG in DEXTROSE 5% 50 ML IV SCH (08:45)
[2022-07-14] MEDS: CEROVITE ADV FORMULA TAB PO SCH (08:46)
[2022-07-14] MEDS: DOCUSATE SODIUM/SENNA 50/8.6MG TAB PO SCH (08:46)
[2022-07-14] MEDS: ASPIRIN 81 MG ECTAB PO SCH (08:46)
[2022-07-14] MEDS: lisinopril 10 MG TAB PO SCH (08:46)
[2022-07-14] MEDS: PRAVASTATIN SOD 10 MG TAB PO SCH (08:46)
[2022-07-14] MEDS: INSULIN HUMAN NPH SQ SCH ×2 (08:50→20:57)
[2022-07-14] MEDS: INSULIN ASPART PER UNIT SC SCH ×4 (08:59→20:56)
--- NOTE | 2022-07-14 10:14 | Electrocardiogram Report ---
Test Reason : Blood Pressure : / mmHG Vent. Rate : 075 BPM Atrial Rate : 075 BPM P-R Int : 138 ms QRS Dur : 090 ms QT Int : 372 ms P-R-T Axes : 048 037 043 degrees QTc Int : 415 ms Poor data quality, interpretation may be adversely affected Normal sinus rhythm Normal ECG When compared with ECG of 13-JUL-2022 09:21, Borderline criteria for Inferior infarct are no longer Present T wave inversion no longer evident in Inferior leads Confirmed by Maik Smalls ([id number]) on 07/14/2022 10:14:19 AM Referred By: REFERRED SELF Confirmed By:Maik Smalls
--- NOTE | 2022-07-14 13:19 | Hospitalist Progress Note ---
Date of Service July 14, 2022 Assessment & Plan (1) Acute hyponatremia: (2) Leukocytosis: (3) Poor appetite: (4) Elevated troponin: (5) T2DM (type 2 diabetes mellitus): (6) HTN (hypertension): (7) HLD (hyperlipidemia): Plan 71-year-old male who has significant past medical history of insulin-dependent T2DM, HTN, HLD, idiopathic thrombocytopenia who presents to ED secondary to generalized weakness and decreased appetite x2 weeks ago PAINTER ROUGH affter getting flu- shot. He is being managed for the following: Acute hyponatremia Poor appetite x2 weeks at presentation Circumferential wall thickening of esophagus on CT scan Generalized weakness Admitting sodium of 126, serum osmolality 283, urine sodium 23 and urine osmolality 477. No prior history of hyponatremia on outpatient chart review 07/14, sodium ranged from 1 37-1 40 during 2019 to 2022. Correlates w. lack of appetite and poor intake over the last 2 weeks PAINTER ROUGH; however uncertain what is driving that at this time, pt reports started day after flu shot, also could be UTI vs esophagitis. Home hydrochlorothiazide on hold, on IV fluid, encourage p.o. intake. PT/OT, consult spare hand, low albumin, obtain prealb pending Na 130 today, continue to monitor, labs in AM. Anemia: Outpatient chart review 07/14 with hemoglobin of 14.6 to 16.0 from 2018- 2021. Admitting hemoglobin 11.8, MCV normal. Iron 18 and transferrin less than 95, ferritin appears elevated likely could be acute phase reactant, folate normal, vitamin B12 low normal. Will start iron supplement and vitamin B12 supplement. Leukocytosis Abnormal urinalysis Admitting Urine shows positive nitrites, leukocyte esterase but negative bacteria He received 2 g Rocephin in ED on 07/13, will continue for now until blood and urine culture results f/u 07/13 blood and urine culture result. Elevated troponin/demand ischemia secondary to acute illness At admission, patient denies chest pain, shortness of breath or exertional symptoms Admitting EKG was with t wave inversion II and III and aVF. Troponin trend downtrending and normal. 07/14 echo with EF 60 to 65%, LV size and systolic function normal. Patient remains chest pain-free. Prolonged QTC: 527 at presentation, 415 on repeat EKG on following day. Avoid QTc prolonging meds. Abnormal CT scan Circumferential wall thickening of esophagus, possible esophagitis Could be possible source of patient's decreased intake although denies any GERD symptoms c/w PPI started at admission, continue to monitor. Consider GI referral as outpatient for endoscopy if persists Insulin-dependent T2DM: SSI while inpatient. A1c of 7.3 on 06/29/2022. Hypertension: Continue lisinopril but hold HCTZ in setting of hyponatremia, if no improvement in Na, will hold lisinopril as well Hyperlipidemia: Continue statin DVT px: SQ Lovenox Dispo: med tele, PT/OT consults placed FULL CODE PCP: Dr. Allison Admission and Anticipated Discharge Date Admission Date: July 13, 2022 Subjective Patient seen and examined at bedside as a follow-up of acute hyponatremia, poor appetite since 2 weeks PAINTER ROUGH, generalized weakness, acute UTI. Patient was lying in bed, room air, NAD, reports no new acute event overnight, reports eating little and then feels he no longer wants to eat, denies any belly pain or bloating or heartburn or indigestion or diaphoresis or chest pain or palpitation during eating, reports losing around 5 pounds since decreasing appetite 2 weeks ago PAINTER ROUGH. Physical Exam Physical Exam: GENERAL: Alert and oriented x3. NAD, on RA. HEENT: No pallor, no icterus. Pupils equal, round and reactive to light. Oral mucosa moist. NECK: No JVD, no neck masses. HEART: S1 and S2 heard. Regular rate and rhythm. No murmur, no gallop. RESPIRATORY SYSTEM: Normal AP diameter. No accessory muscle use. No wheezing, no crackles. ABDOMEN: Soft, bowel sounds present, nontender, no distention. CENTRAL NERVOUS SYSTEM: No facial droop. Speech is clear. Obeys simple comman ds. Moves extremities. EXTREMITIES: No edema, no erythema seen. Results & Data Results & Data ([facility]) Vital Signs (Past 12 Hours) Vital Signs Temp Pulse Pulse Pulse Resp BP Pulse Ox 07/14/22 12:02 37.1 C 76 18 116/60 95 07/14/22 07:54 37.1 C 75 18 120/63 93 07/14/22 07:23 71 07/14/22 05:01 37.0 C 72 18 107/68 94 O2 Del Method 07/14/22 12:02 Room Air 07/14/22 07:54 Room Air 07/14/22 07:23 07/14/22 05:01 Room Air
[2022-07-14 13:22] LABS: Prealbumin < 3.0 mg/dl (20-40)
[2022-07-14] MEDS: CYANOCOBALAMIN (B-12) 100 MCG TABLET PO SCH (13:30)
[2022-07-14] MEDS: MAGNESIUM SULFATE / D5W 1 GM/100 ML BAG IV SCH ×2 (13:45→16:05)
[2022-07-14] MEDS: ENOXAPARIN INJ 40 MG/0.4 ML SYR SQ SCH (21:00)
[2022-07-15] MEDS: ACETAMINOPHEN 325 MG TAB PO PRN ×2 (02:58→15:35)
[2022-07-15 07:35] LABS: Mean Corpuscular Hemoglobin 30.1 pg (25.0-34.0); Mean Corpuscular Hgb Conc 34.4 g/dL (32.0-36.0); Mean Corpuscular Volume 87.7 fL (80.0-100.0); Mean Platelet Volume 10.7 fL (9.4-12.4); Platelet Count 334 K/uL (130-400); RDW Coefficient of Variation 12.8 % (11.5-14.5); RDW Standard Deviation 41.1 fL (36.4-46.3); Red Blood Count 3.65 M/uL (4.70-6.10); White Blood Count 15.77 K/ul (4.8-10.8)
[2022-07-15 08:44] LABS: BUN Creatinine Ratio 25.9 (10-20); Calcium 8.2 mg/dl (8.5-10.1); Creatinine Clr Calc Pharmacy 87.9 ml/min; Est GFR (African American) 102.3 ml/min; Est GFR (Non-African American) 88.3 ml/min; Magnesium 1.8 mg/dl (1.7-2.4); Phosphorus 2.8 mg/dl (2.5-4.9); Potassium 4.3 mmol/L (3.5-5.1)
[2022-07-15] MEDS: INSULIN ASPART PER UNIT SC SCH ×4 (08:50→21:05)
[2022-07-15] MEDS: PRAVASTATIN SOD 10 MG TAB PO SCH (08:51)
[2022-07-15] MEDS: DOCUSATE SODIUM/SENNA 50/8.6MG TAB PO SCH (08:51)
[2022-07-15] MEDS: FERROUS SULFATE 325 MG TAB PO SCH (08:52)
[2022-07-15] MEDS: lisinopril 10 MG TAB PO SCH (08:52)
[2022-07-15] MEDS: CEROVITE ADV FORMULA TAB PO SCH (08:52)
[2022-07-15] MEDS: ASPIRIN 81 MG ECTAB PO SCH (08:52)
[2022-07-15] MEDS: PANTOprazole 40 MG TAB PO SCH ×2 (08:52→21:07)
[2022-07-15] MEDS: CYANOCOBALAMIN (B-12) 100 MCG TABLET PO SCH (08:53)
[2022-07-15] MEDS: INSULIN HUMAN NPH SQ SCH ×2 (08:54→21:05)
[2022-07-15] MEDS: cefTRIAXone SODIUM 2,000 MG in DEXTROSE 5% 50 ML IV SCH (09:17)
[2022-07-15] MEDS: metroNIDAZOLE 500 MG/100 ML BAG IV SCH ×2 (10:30→18:22)
--- NOTE | 2022-07-15 15:35 | Hospitalist Progress Note ---
Date of Service July 15, 2022 Assessment & Plan (1) Acute hyponatremia: (2) Leukocytosis: (3) Poor appetite: (4) Elevated troponin: (5) T2DM (type 2 diabetes mellitus): (6) HTN (hypertension): (7) HLD (hyperlipidemia): Plan 71-year-old male who has significant past medical history of insulin-dependent T2DM, HTN, HLD, idiopathic thrombocytopenia who presents to ED secondary to generalized weakness and decreased appetite x2 weeks ago [employer] affter getting flu- shot. He is being managed for the following: Acute hyponatremia Poor appetite x2 weeks at presentation Circumferential wall thickening of esophagus on CT scan Generalized weakness Admitting sodium of 126, serum osmolality 283, urine sodium 23 and urine osmolality 477. No prior history of hyponatremia on outpatient chart review 07/14, sodium ranged from 1 37-1 40 during 2019 to 2022. Correlates w. lack of appetite and poor intake over the last 2 weeks [employer]; however uncertain what is driving that at this time, pt reports started day after flu shot, also could be UTI vs esophagitis. Home hydrochlorothiazide on hold, encourage p.o. intake. PT/OT, consulted bessemer bottom maker, low albumin, low prealb Na 131 today, continue to monitor, labs in AM. Pt reports some improvement in appetite. Anemia: Outpatient chart review 07/14 with hemoglobin of 14.6 to 16.0 from 2018- 2021. Admitting hemoglobin 11.8, MCV normal. Iron 18 and transferrin less than 95, ferritin appears elevated likely could be acute phase reactant, folate normal, vitamin B12 low normal. Started iron supplement and vitamin B12 supplement on 07/14. Leukocytosis Abnormal urinalysis Esophagitis Admitting Urine shows positive nitrites, leukocyte esterase but negative bacteria He received 2 g Rocephin in ED on 07/13, will continue for now until blood and urine culture results 07/13 Urine Cx: mixed mohit 07/13 blood cx: NG 48 hours Resent Urine Cx 07/15. WBC stalled around 14-15K, procal elevated today (but no baseline this admission), had one time temp of 38.3C, will continue current atb Plus metron 07/15; will follow labs/vitals/procal in AM. Elevated troponin/demand ischemia secondary to acute illness At admission, patient denies chest pain, shortness of breath or exertional symptoms Admitting EKG was with t wave inversion II and III and aVF. Troponin trend downtrending and normal. 07/14 echo with EF 60 to 65%, LV size and systolic function normal. Patient remains chest pain-free. Prolonged QTC: 527 at presentation, 415 on repeat EKG on following day. Avoid QTc prolonging meds. Abnormal CT scan Circumferential wall thickening of esophagus, possible esophagitis Could be possible source of patient's decreased intake although denies any GERD symptoms c/w PPI started at admission, continue to monitor. Consider GI referral as outpatient for endoscopy if persists Insulin-dependent T2DM: SSI while inpatient. A1c of 7.3 on 06/29/2022. Hypertension: Continue lisinopril but hold HCTZ in setting of hyponatremia, if no improvement in Na, will hold lisinopril as well Hyperlipidemia: Continue statin DVT px: SQ Lovenox Dispo: med tele, PT/OT consults placed FULL CODE PCP: Dr. Allison Admission and Anticipated Discharge Date Admission Date: July 13, 2022 Subjective Patient seen and examined at bedside as a follow-up of acute hyponatremia, poor appetite since 2 weeks H[employer], generalized weakness, acute UTI. Patient was lying in bed, room air, NAD, reports no new acute event overnight, reports eating better, denies any belly pain or bloating or heartburn or indigestion or diaphoresis or chest pain or palpitation during eating. Had one time temp of 38.3C overnight, did procal which was elevated. Physical Exam Physical Exam: GENERAL: Alert and oriented x3. NAD, on RA. HEENT: No pallor, no icterus. Pupils equal, round and reactive to light. Oral mucosa moist. NECK: No JVD, no neck masses. HEART: S1 and S2 heard. Regular rate and rhythm. No murmur, no gallop. RESPIRATORY SYSTEM: Normal AP diameter. No accessory muscle use. No wheezing, no crackles. ABDOMEN: Soft, bowel sounds present, nontender, no distention. CENTRAL NERVOUS SYSTEM: No facial droop. Speech is clear. Obeys simple commands. Moves extremities. EXTREMITIES: No edema, no erythema seen. Results & Data Results & Data ([facility]) Vital Signs (Past 12 Hours) Vital Signs Temp Pulse Pulse Resp BP Pulse Ox O2 Del Method 07/15/22 15:26 37.7 C H 82 18 120/65 92 Room Air 07/15/22 12:12 36.8 C 76 18 120/69 92 Room Air 07/15/22 09:00 Room Air 07/15/22 07:00 60 07/15/22 06:40 36.5 C 62 18 101/64 95 Room Air 07/15/22 03:38 37.1 C
[2022-07-15] MEDS: ENOXAPARIN INJ 40 MG/0.4 ML SYR SQ SCH (21:07)
[2022-07-16] MEDS: metroNIDAZOLE 500 MG/100 ML BAG IV SCH (03:59)
[2022-07-16 07:46] LABS: Hematocrit (blood only) 32.5 % (42.0-52.0); Hemoglobin 11.2 g/dl (14.0-18.0); Mean Corpuscular Hgb Conc 34.5 g/dL (32.0-36.0); Mean Corpuscular Volume 87.1 fL (80.0-100.0); Mean Platelet Volume 10.6 fL (9.4-12.4); Platelet Count 410 K/uL (130-400); RDW Coefficient of Variation 13.1 % (11.5-14.5); RDW Standard Deviation 41.4 fL (36.4-46.3); Red Blood Count 3.73 M/uL (4.70-6.10); White Blood Count 15.12 K/ul (4.8-10.8)
[2022-07-16 08:02] LABS: BUN Creatinine Ratio 24.4 (10-20); Calcium 8.3 mg/dl (8.5-10.1); Est GFR (Non-African American) 91.5 ml/min; Magnesium 1.6 mg/dl (1.7-2.4); Phosphorus 2.3 mg/dl (2.5-4.9); Potassium 4.2 mmol/L (3.5-5.1)
[2022-07-16] MEDS: INSULIN ASPART PER UNIT SC SCH ×4 (08:08→21:14)
[2022-07-16] MEDS: INSULIN HUMAN NPH SQ SCH ×2 (08:08→21:16)
[2022-07-16] MEDS: ASPIRIN 81 MG ECTAB PO SCH (08:09)
[2022-07-16] MEDS: PANTOprazole 40 MG TAB PO SCH ×2 (08:09→21:00)
[2022-07-16] MEDS: CYANOCOBALAMIN (B-12) 100 MCG TABLET PO SCH (08:09)
[2022-07-16] MEDS: lisinopril 10 MG TAB PO SCH (08:10)
[2022-07-16] MEDS: FERROUS SULFATE 325 MG TAB PO SCH (08:10)
[2022-07-16] MEDS: PRAVASTATIN SOD 10 MG TAB PO SCH (08:10)
[2022-07-16] MEDS: CEROVITE ADV FORMULA TAB PO SCH (08:10)
[2022-07-16] MEDS: DOCUSATE SODIUM/SENNA 50/8.6MG TAB PO SCH (08:10)
[2022-07-16] MEDS: cefTRIAXone SODIUM 2,000 MG in DEXTROSE 5% 50 ML IV SCH (08:12)
[2022-07-16] MEDS ORDERED: PIPERACILLIN/TAZOBACTAM 3.375 GM (over 30 mins) IV ONE (09:30)
[2022-07-16 10:23] LABS: Lyme Ab IgG w/WB Rflx Negative (Negative); Lyme Ab IgM w/WB Rflx Negative (Negative)
--- NOTE | 2022-07-16 14:23 | Hospitalist Progress Note ---
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 He is being managed for the following: Acute hyponatremia Poor appetite x2 weeks at presentation Circumferential wall thickening of esophagus on CT scan Generalized weakness Admitting sodium of 126, serum osmolality 283, urine sodium 23 and urine osmolality 477. No prior history of hyponatremia on outpatient chart review 07/14, sodium ranged from 1 37-1 40 during 2019 to 2022. Correlates w. lack of appetite and poor intake over the last 2 weeks [employer]; however uncertain what is driving that at this time, pt reports started day after flu shot, also could be UTI vs esophagitis. Home hydrochlorothiazide on hold, encourage p.o. intake. PT/OT, consulted wood fence installer, low albumin, low prealb Na 129 today, continue to monitor, labs in AM. Pt reports poor appetite again, but would want to drink protein and milk, will include them in each meal. Anemia: Outpatient chart review 07/14 with hemoglobin of 14.6 to 16.0 from 2018- 2021. Admitting hemoglobin 11.8, MCV normal. Iron 18 and transferrin less than 95, ferritin appears elevated likely could be acute phase reactant, folate normal, vitamin B12 low normal. Started iron supplement and vitamin B12 supplement on 07/14. Leukocytosis Abnormal urinalysis Esophagitis Admitting Urine shows positive nitrites, leukocyte esterase but negative bacteria He received 2 g Rocephin in ED on 07/13, will continue for now until blood and urine culture results 07/13 Urine Cx: mixed mohit 07/13 blood cx: NG 48 hours 07/15 Bl Cx (sent because pt feeling lousy/sweaty/borderline temp around the time but no specific symptom): pending Resent Urine Cx 07/15. WBC stalled around 14-15K, procal remains elevated (but no baseline this admission), had one time temp of 38.3C on 07/15, Rocephin and metron DC'd, will use zosyn, consult ID. Tick serology sent. Elevated troponin/demand ischemia secondary to acute illness At admission, patient denies chest pain, shortness of breath or exertional symptoms Admitting EKG was with t wave inversion II and III and aVF. Troponin trend downtrending and normal. 07/14 echo with EF 60 to 65%, LV size and systolic function normal. Patient remains chest pain-free. Prolonged QTC: 527 at presentation, 415 on repeat EKG on following day. Avoid QTc prolonging meds. Abnormal CT scan Circumferential wall thickening of esophagus, possible esophagitis Could be possible source of patient's decreased intake although denies any GERD symptoms c/w PPI started at admission, continue to monitor. Consider GI referral as outpatient for endoscopy if persists Insulin-dependent T2DM: SSI while inpatient. A1c of 7.3 on 06/29/2022. Hypertension: Continue lisinopril but hold HCTZ in setting of hyponatremia, if no improvement in Na, consider holding lisinopril as well Hyperlipidemia: Continue statin DVT px: SQ Lovenox Dispo: med tele, PT/OT consults placed FULL CODE PCP: Dr. Allison Admission and Anticipated Discharge Date Admission Date: July 13, 2022 Subjective Patient seen and examined at bedside as a follow-up of acute hyponatremia, poor appetite since 2 weeks [employer], generalized weakness, acute UTI. Patient was lying in bed, room air, NAD, reports no new acute event overnight, reports not wanting to eat but no associated symptoms; but willing to drink protein and milk and likes them---will use more protein shakes now until his diet improves, denies any belly pain or bloating or heartburn or indigestion or diaphoresis or chest pain or palpitation during eating. Physical Exam Physical Exam: GENERAL: Alert and oriented x3. NAD, on RA. HEENT: No pallor, no icterus. Pupils equal, round and reactive to light. Oral mucosa moist. NECK: No JVD, no neck masses. HEART: S1 and S2 heard. Regular rate and rhythm. No murmur, no gallop. RESPIRATORY SYSTEM: Normal AP diameter. No accessory muscle use. No wheezing, no crackles. ABDOMEN: Soft, bowel sounds present, nontender, no distention. CENTRAL NERVOUS SYSTEM: No facial droop. Speech is clear. Obeys simple commands. Moves extremities. EXTREMITIES: No edema, no erythema seen. Results & Data Results & Data ([facility]) Vital Signs (Past 12 Hours) Vital Signs Temp Pulse Resp BP BP Pulse Ox O2 Del Method 07/16/22 08:00 Room Air 07/16/22 11:13 36.7 C 83 18 113/67 95 Room Air 07/16/22 07:09 36.5 C 75 17 116/69 91 Room Air 07/16/22 03:39 36.8 C 87 18 114/63 93 Room Air
[2022-07-16] MEDS: PIPERACILLIN/TAZOBACTAM 3.375 GM in DEXTROSE 5% 100 ML IV SCH ×2 (15:15→23:35)
[2022-07-16] MEDS: MAGNESIUM OXIDE 400 MG TAB PO SCH ×2 (16:27→21:00)
[2022-07-16] MEDS: POT PHOSPHATE MONOBASIC W/ SOD TAB PO SCH ×2 (16:27→21:02)
[2022-07-16] MEDS: ENOXAPARIN INJ 40 MG/0.4 ML SYR SQ SCH (20:59)
[2022-07-17 07:32] LABS: Hematocrit (blood only) 32.2 % (42.0-52.0); Hemoglobin 10.9 g/dl (14.0-18.0); Mean Corpuscular Hemoglobin 29.8 pg (25.0-34.0); Mean Corpuscular Hgb Conc 33.9 g/dL (32.0-36.0); Mean Platelet Volume 11.7 fL (9.4-12.4); Platelet Count 273 K/uL (130-400); RDW Coefficient of Variation 13.2 % (11.5-14.5); RDW Standard Deviation 42.7 fL (36.4-46.3); Red Blood Count 3.66 M/uL (4.70-6.10); White Blood Count 12.12 K/ul (4.8-10.8)
[2022-07-17] MEDS: PIPERACILLIN/TAZOBACTAM 3.375 GM in DEXTROSE 5% 100 ML IV SCH ×3 (07:32→22:37)
[2022-07-17 07:47] LABS: BUN Creatinine Ratio 21.1 (10-20); Creatinine Clr Calc Pharmacy 105.6 ml/min; Est GFR (African American) 110.2 ml/min; Est GFR (Non-African American) 95.1 ml/min; Magnesium 1.6 mg/dl (1.7-2.4); Phosphorus 2.6 mg/dl (2.5-4.9); Potassium 4.1 mmol/L (3.5-5.1)
[2022-07-17] MEDS: FERROUS SULFATE 325 MG TAB PO SCH (08:22)
[2022-07-17] MEDS: CYANOCOBALAMIN (B-12) 100 MCG TABLET PO SCH (08:22)
[2022-07-17] MEDS: ASPIRIN 81 MG ECTAB PO SCH (08:23)
[2022-07-17] MEDS: lisinopril 10 MG TAB PO SCH (08:23)
[2022-07-17] MEDS: CEROVITE ADV FORMULA TAB PO SCH (08:23)
[2022-07-17] MEDS: PRAVASTATIN SOD 10 MG TAB PO SCH (08:23)
[2022-07-17] MEDS: DOCUSATE SODIUM/SENNA 50/8.6MG TAB PO SCH (08:23)
[2022-07-17] MEDS: PANTOprazole 40 MG TAB PO SCH ×2 (08:24→20:55)
[2022-07-17] MEDS: POT PHOSPHATE MONOBASIC W/ SOD TAB PO SCH ×4 (08:24→20:56)
[2022-07-17] MEDS: MAGNESIUM OXIDE 400 MG TAB PO SCH ×2 (08:24→20:55)
[2022-07-17] MEDS: INSULIN ASPART PER UNIT SC SCH ×4 (08:26→20:54)
[2022-07-17] MEDS: INSULIN HUMAN NPH SQ SCH ×2 (08:27→17:14)
[2022-07-17] MEDS ORDERED: MAGNESIUM SULFATE / D5W 1 GM/100 ML BAG IV ONE (08:29)
--- NOTE | 2022-07-17 09:38 | Gastrointestinal Consultation ---
Date of Consultation July 17, 2022 Assessment & Plan (1) Poor appetite: (2) Abnormal CT scan, esophagus: ? esophagitis on CT Plan Main symptom is nausea. He denies any ongoing dysphagia and hasn't had any odynophagia. His symptoms are consistent with an episode of reflux occurring this morning at that time that he was attempting to swallow pills. Will plan for EGD tomorrow. Also noted is a mild normocytic anemia and borderline elevated INR at 1.2 and pt has never had a screening for colon cancer. Recommend OP colonoscopy after EGD - if pt agreeable. Clearl liquids po today. NPO after midnight. Supervising Physician Co-Signing Physician Notes Attg add: I interviewed and examined pt, reviewed chart and labs. He is an inconsistent historian. Pt has dysphagia x 2 weeks, characterized by diff swallowing solids. and frequent regurgitation. His social support is poor. Will plan EGD tomorrow. Clear liquids today. History of Present Illness Reason for Consultation: swallowing difficulty; esophagitis; early sateity Requesting Physician: Dr. Champion Attending Physician: Zachary Champion MD History of Present Illness Mr. Alexander Woods is a 71 yr old male pt of Dr. Keegan carrero a hx of insulin-dependent T2DM, HTN, HLD, idiopathic thrombocytopenia who presented to the ED yesterday for weakness, decreased appetite x 2 wks. GI is consulted for these issues and dysphagia. His symptoms began after receiving a flu shot. Non con CTAP on 07/13 (day of arrival) equivocal for distal esophageal wall thickening vs underdistention and small hiatal hernia. Leukocytosis (17) was also present and he is receiving Zosyn (today 12). Blood and urine cx are (-) thus far. He reports that for the past 2 wks his main symptom has been no appetite, and he has not been eating or drinking much. He actually describes an aversion "food turns me off." He did not have any nausea until this morning. No vomiting. No abdominal pain. He has had mild constipation for the past few weeks and did pass a "good BM a few days ago," and a small one yesterday, but prior to 2 wks ago has not had any constipation and he denies any diarrhea. He has never had refux, until this morning. He describes that when he tried to swallow pills, the boost that he had just finished drinking felt like it was "coming back up, could taste it, and that made the pills not go down." He denies any pain on swallowing. No choking/gagging or spewing of foods. He has gracy sipping Jaylin Aimee currently and "that has been going down OK." He has never previously undergone EGD or colonoscopy (has refused screening thus far), but is willing to undergo EGD now. Allergies Allergy/AdvReac Type Severity Reaction Status Date / Time No Known Allergies Allergy Mild Unverified 07/13/22 09:58 Home Medications Medication Instructions Recorded Confirmed Type aspirin 81 mg capsule 81 mg PO DAILY 07/13/22 07/13/22 History hydrochlorothiazide 12.5 mg capsule 12.5 mg PO DAILY 07/13/22 07/13/22 History insulin NPH isoph U-100 human 100 14 unit subcut BID 07/13/22 07/13/22 History unit/mL subcutaneous suspension (Novolin N NPH U-100 Insulin isophane) insulin regular human 100 unit/mL 6 unit subcut QDD 07/13/22 07/13/22 History injection solution (Novolin R Regular U-100 Insulin) insulin regular human 100 unit/mL 8 unit subcut QAM 07/13/22 07/13/22 History injection solution (Novolin R Regular U-100 Insulin) lisinopril 30 mg tablet 30 mg PO QAM 07/13/22 07/13/22 History metformin 500 mg tablet,extended 1,000 mg PO QDD 07/13/22 07/13/22 History release 24 hr pravastatin 10 mg tablet 10 mg PO QAM 07/13/22 07/13/22 History vitamins A,C,S-syku-xuujze 2,148 1 tab PO QAM 07/13/22 07/13/22 History mcg-113 mg-45 mg-17.4 mg tablet (PreserVision AREDS) Patient History Medical History (Updated 07/17/22 @ 10:36 by HAILEE Trinidad) HLD (hyperlipidemia) HTN (hypertension) T2DM (type 2 diabetes mellitus) Thrombocytopenia Surgical History (Updated 07/13/22 @ 12:03 by Amee Le PA-C) Hx of fracture of femur Family History (Updated 07/13/22 @ 12:20 by Amee Le PA-C) Mother Breast cancer Father Coronary heart disease Social History (Updated 07/13/22 @ 12:17 by Amee Le PA-C) Smoking Status: Former smoker Second Hand Exposure: Yes; Do You Dip or Chew Tobacco: Yes; Tobacco Cessation Education Requested by Patient: Yes Hx Alcohol Use: No Hx Substance Use: No Preferred Language: Danish Communication Ability: Effective Care Clinician Required: No Beliefs That Will Affect Care: None Current Living Situation: Other Current Living Situation Comment: lives with brother Zach Other Information That Helps Us Care for You: No Feels Safe at Home: Yes Safety Concerns: Feels Safe At This Time Assistive Devices: None Review of Systems Constitutional: No weight loss + fevers here to mas 38.3; afebrile since 07/15 +weakness; Eyes: NO problems Ear, Nose, Mouth, Throat: NO problems Respiratory: no cough, no chest congestion and no dyspnea on exertion Cardiovascular: no chest pain, no dyspnea and no palpitations Gastrointestinal: + nausea; no abdominal pain, no vomiting, no blood in stools and no melena Genitourinary: no dysuria Musculoskeletal: + body aches (for a few days after receiving the flu shot); no back pain and no muscle weakness Integumentary: no rash, no lesions and no yellowing of the skin Neurologic: no dizziness, no confusion and no memory loss Psychiatric: no depression, no irritability and no anxiety Physical Exam Constitutional: well developed, average body habitus, cooperative and comfortable; no acute distress Eyes: PERRL, conjunctivae normal, anicteric sclerae ENMT: external ear and nose normal, oropharynx normal Neck: trachea midline, no thyromegaly Respiratory: normal respiratory effort, lungs clear to auscultation Cardiovascular: RRR, no murmur, no edema Gastrointestinal (Abdomen): normal bowel sounds, soft, nontender, no hepatosplenomegaly Musculoskeletal: no cyanosis or clubbing, extremities motor strength 5/5 Skin: no rashes, warm and dry Neurologic: PERRL, EOMI, accommodation nl, no face palsy, no dysarthria Psychiatric: Appears tired, somewhat flat affect. Lymphatic: no cervical or axillary lymphadenopathy Results & Data ([facility]) Vital Signs (Past 12 Hours) Vital Signs Temp Pulse Pulse Resp BP Pulse Ox O2 Del Method 02/28/23 08:15 37.0 C 73 20 116/67 93 Room Air 07/17/22 04:00 36.7 C 66 18 118/69 93 Room Air 07/16/22 22:03 79 07/16/22 23:30 36.8 C 71 18 107/65 94 Room Air Laboratory Results WBC 12, Hb 10, Hct 32, Plts 273, Na 131, K 4.1, CL96, CO2 30, BUN 15, Cr 0.87, glucose 227. 07/13/22: PT 12.2, INR 1.2 Diagnostic Findings Non contrast CTAP 07/13/22: 1. No acute process within the abdomen or pelvis. 2. Circumferential wall thickening of the distal esophagus. Although this could be due to underdistention, esophagitis could appear similar. Small hiatal hernia. 3. No bowel obstruction. No bowel wall thickening.
--- NOTE | 2022-07-17 15:07 | Hospitalist Progress Note ---
Date of Service July 17, 2022 Assessment & Plan (1) Acute hyponatremia: (2) Leukocytosis: (3) Poor appetite: (4) Elevated troponin: (5) T2DM (type 2 diabetes mellitus): (6) HTN (hypertension): (7) HLD (hyperlipidemia): Plan 71-year-old male who has significant past medical history of insulin-dependent T2DM, HTN, HLD, idiopathic thrombocytopenia who presents to ED secondary to generalized weakness and decreased appetite x2 weeks ago [employer] affter getting flu- shot. He is being managed for the following: Acute hyponatremia Poor appetite x2 weeks at presentation Circumferential wall thickening of esophagus on CT scan Generalized weakness Admitting sodium of 126, serum osmolality 283, urine sodium 23 and urine osmolality 477. No prior history of hyponatremia on outpatient chart review 07/14, sodium ranged from 1 37-1 40 during 2019 to 2022. Correlates w. lack of appetite and poor intake over the last 2 weeks [employer]; however uncertain what is driving that at this time, pt reports started day after flu shot, also could be UTI vs esophagitis. Home hydrochlorothiazide on hold, encourage p.o. intake. PT/OT, consulted design analyst, low albumin, low prealb Na 131 today, drank his protein shakes and milk yesterday. Pt now w/ complain of difficulty swallowing solid food; has early satiety. GI consulted given no prior cancer screening. Speech consulted for swallow eval. clear liq diet today, for egd scope in AM. Anemia: Outpatient chart review 07/14 with hemoglobin of 14.6 to 16.0 from 2018- 2021. Admitting hemoglobin 11.8, MCV normal. Iron 18 and transferrin less than 95, ferritin appears elevated likely could be acute phase reactant, folate normal, vitamin B12 low normal. Started iron supplement and vitamin B12 supplement on 07/14. Leukocytosis Abnormal urinalysis Esophagitis Admitting Urine shows positive nitrites, leukocyte esterase but negative bacteria He received 2 g Rocephin in ED on 07/13, will continue for now until blood and urine culture results 07/13 Urine Cx: mixed mohit 07/13 blood cx: NG 48 hours 07/15 Bl Cx (sent because pt feeling lousy/sweaty/borderline temp around the time but no specific symptom): pending Resent Urine Cx 07/15 - no growth WBC stalled around 14-15K, procal remains elevated (but no baseline this admission), had one time temp of 38.3C on 07/15, Rocephin and metron DC'd, zosyn since 07/16, consult ID. ----> finally WBC trending down and temp better;infection workup so far negative. Await ID recs. Elevated troponin/demand ischemia secondary to acute illness At admission, patient denies chest pain, shortness of breath or exertional symptoms Admitting EKG was with t wave inversion II and III and aVF. Troponin trend downtrending and normal. 07/14 echo with EF 60 to 65%, LV size and systolic function normal. Patient remains chest pain-free. Prolonged QTC: 527 at presentation, 415 on repeat EKG on following day. Avoid QTc prolonging meds. Abnormal CT scan Circumferential wall thickening of esophagus, possible esophagitis Could be possible source of patient's decreased intake although denies any GERD symptoms c/w PPI started at admission, continue to monitor. GI on board, appreciate recs. Insulin-dependent T2DM: SSI while inpatient. A1c of 7.3 on 06/29/2022. Hypertension: Continue lisinopril but hold HCTZ in setting of hyponatremia, if no improvement in Na, consider holding lisinopril as well Hyperlipidemia: Continue statin DVT px: SQ Lovenox on hold for EGD scope in AM. Dispo: med tele, PT/OT consults placed FULL CODE PCP: Dr. Allison Admission and Anticipated Discharge Date Admission Date: July 13, 2022 Subjective Patient seen and examined at bedside as a follow-up of acute hyponatremia, poor appetite since 2 weeks [employer], generalized weakness, acute UTI. Patient was lying in bed, room air, NAD, reports no new acute events overnight, pt reports drinking his protein shakes and milk but reports having trouble swallowing solid food. Had choking episode on pills today. Speech consulted for eval. GI also consulted give early satiety and no h/o scope/gi eval in the past. Pt denies any belly pain or bloating or heartburn or indigestion or diaphoresis or chest pain or palpitation during eating. Pt denies other ROS. Physical Exam Physical Exam: GENERAL: Alert and oriented x3. NAD, on RA. Appears ill/weak. HEENT: No pallor, no icterus. Pupils equal, round and reactive to light. Oral mucosa moist. NECK: No JVD, no neck masses. HEART: S1 and S2 heard. Regular rate and rhythm. No murmur, no gallop. RESPIRATORY SYSTEM: Normal AP diameter. No accessory muscle use. No wheezing, no crackles. ABDOMEN: Soft, bowel sounds present, nontender, no distention. CENTRAL NERVOUS SYSTEM: No facial droop. Speech is clear. Obeys simple commands. Moves extremities. EXTREMITIES: No edema, no erythema seen. Results & Data Results & Data ([facility]) Vital Signs (Past 12 Hours) Vital Signs Temp Pulse Resp BP BP Pulse Ox O2 Del Method 07/17/22 11:37 86 20 118/69 95 Room Air 07/17/22 07:30 Room Air 07/17/22 11:16 37.0 C 72 30 H 102/59 L 92 Room Air 07/17/22 08:15 37.0 C 73 20 116/67 93 Room Air 07/17/22 04:00 36.7 C 66 18 118/69 93 Room Air
[2022-07-18] MEDS ORDERED: Nursing to Pharmacy Communication SCH (03:15)
[2022-07-18] MEDS: INSULIN ASPART PER UNIT SC SCH ×4 (06:08→22:51)
[2022-07-18] MEDS: PIPERACILLIN/TAZOBACTAM 3.375 GM in DEXTROSE 5% 100 ML IV SCH ×3 (06:08→22:45)
[2022-07-18 06:50] LABS: Hematocrit (blood only) 35.4 % (42.0-52.0); Hemoglobin 12.1 g/dl (14.0-18.0); Mean Corpuscular Hemoglobin 30.1 pg (25.0-34.0); Mean Corpuscular Hgb Conc 34.2 g/dL (32.0-36.0); Mean Corpuscular Volume 88.1 fL (80.0-100.0); Mean Platelet Volume 11.2 fL (9.4-12.4); Platelet Count 371 K/uL (130-400); RDW Coefficient of Variation 13.2 % (11.5-14.5); RDW Standard Deviation 42.8 fL (36.4-46.3); Red Blood Count 4.02 M/uL (4.70-6.10); White Blood Count 12.87 K/ul (4.8-10.8)
[2022-07-18 07:19] LABS: BUN Creatinine Ratio 14.7 (10-20); Calcium 8.3 mg/dl (8.5-10.1); Creatinine Clr Calc Pharmacy 101.2 ml/min; Est GFR (African American) 107.7 ml/min; Est GFR (Non-African American) 92.9 ml/min; Magnesium 1.8 mg/dl (1.7-2.4); Phosphorus 3.1 mg/dl (2.5-4.9); Potassium 4.4 mmol/L (3.5-5.1)
--- NOTE | 2022-07-18 08:09 | Communication Note ---
Date of Service: July 18, 2022 Patient was seen, evaluated. Remains NPO for EGD this AM. All questions answers. Please keep NPO for EGD today with Dr. Cochran
[2022-07-18] MEDS: POT PHOSPHATE MONOBASIC W/ SOD TAB PO SCH ×2 (08:12→14:48)
[2022-07-18] MEDS: lisinopril 10 MG TAB PO SCH (08:12)
[2022-07-18] MEDS: MAGNESIUM OXIDE 400 MG TAB PO SCH ×2 (08:12→21:18)
[2022-07-18] MEDS: FERROUS SULFATE 325 MG TAB PO SCH (08:12)
[2022-07-18] MEDS: ASPIRIN 81 MG ECTAB PO SCH ×2 (08:12→10:35)
[2022-07-18] MEDS: CYANOCOBALAMIN (B-12) 100 MCG TABLET PO SCH (08:13)
[2022-07-18] MEDS: CEROVITE ADV FORMULA TAB PO SCH (08:13)
[2022-07-18] MEDS: PANTOprazole 40 MG TAB PO SCH ×2 (08:13→21:17)
[2022-07-18] MEDS: PRAVASTATIN SOD 10 MG TAB PO SCH (08:13)
[2022-07-18] MEDS: DOCUSATE SODIUM/SENNA 50/8.6MG TAB PO SCH (08:15)
[2022-07-18] MEDS: INSULIN HUMAN NPH SQ SCH ×2 (08:22→17:20)
--- NOTE | 2022-07-18 10:12 | Hospitalist Progress Note ---
Date of Service July 18, 2022 Assessment & Plan (1) Acute hyponatremia: (2) Leukocytosis: (3) Poor appetite: (4) Elevated troponin: (5) T2DM (type 2 diabetes mellitus): (6) HTN (hypertension): (7) HLD (hyperlipidemia): Plan 71 yo M who w/ insulin-dependent T2DM, HTN, HLD, idiopathic thrombocytopenia who presents to ED secondary to generalized weakness and decreased appetite x2 weeks ago [employer] after getting flu-shot. He is being managed for the following: Acute hyponatremia Poor appetite x2 weeks at presentation Circumferential wall thickening of esophagus on CT scan Generalized weakness Admitting sodium of 126, serum osmolality 283, urine sodium 23 and urine osmolality 477. No prior history of hyponatremia on outpatient chart review 07/14, sodium ranged from 1 37-1 40 during 2019 to 2022. Correlates w. lack of appetite and poor intake over the last 2 weeks [employer]; however uncertain what is driving that at this time, pt reports started day after flu shot, also could be UTI vs esophagitis. Home hydrochlorothiazide on hold, encourage p.o. intake. PT/OT, consulted wire coiler, low albumin, low prealb drank his protein shakes and milk yesterday. Na 132 today Pt now w/ complain of difficulty swallowing solid food; has early satiety. GI consulted given no prior cancer screening. Plan for EGD today. Speech consulted for swallow eval. clear liq diet today, for now, further recs after endoscopy Anemia: Outpatient chart review 07/14 with hemoglobin of 14.6 to 16.0 from [id number]. Admitting hemoglobin 11.8, MCV normal. Iron 18 and transferrin less than 95, ferritin appears elevated likely could be acute phase reactant, folate normal, vitamin B12 low normal. Started iron supplement and vitamin B12 supplement on 07/14. Leukocytosis Abnormal urinalysis Esophagitis Admitting Urine shows positive nitrites, leukocyte esterase but negative bacteria He received 2 g Rocephin in ED on 07/13, will continue for now until blood and urine culture results 07/13 Urine Cx: mixed mohit 07/13 blood cx: NG 48 hours 07/15 Bl Cx (sent because pt feeling lousy/sweaty/borderline temp around the time but no specific symptom): NG 48 hrs Resent Urine Cx 07/15 - no growth WBC stalled around 14-15K, procal remains elevated (but no baseline this admission), had one time temp of 38.3C on 07/15, Rocephin and metron DC'd, zosyn since 07/16, consult ID. ----> finally WBC trending down and temp better;infection workup so far negative. Await ID recs. Elevated troponin/demand ischemia secondary to acute illness At admission, patient denies chest pain, shortness of breath or exertional symptoms Admitting EKG was with t wave inversion II and III and aVF. Troponin trend downtrending and normal. 07/14 echo with EF 60 to 65%, LV size and systolic function normal. Patient remains chest pain-free. Prolonged QTC: 527 at presentation, 415 on repeat EKG on following day. Avoid QTc prolonging meds. Abnormal CT scan Circumferential wall thickening of esophagus, possible esophagitis Could be possible source of patient's decreased intake although denies any GERD symptoms c/w PPI started at admission, continue to monitor. GI on board, appreciate recs. Insulin-dependent T2DM: SSI while inpatient. A1c of 7.3 on 06/29/2022. Hypertension: Continue lisinopril but hold HCTZ in setting of hyponatremia, if no improvement in Na, consider holding lisinopril as well Hyperlipidemia: Continue statin DVT px: SQ Lovenox on hold for EGD scope today Dispo: med tele, PT/OT consults placed FULL CODE PCP: Dr. Allison Admission and Anticipated Discharge Date Admission Date: July 13, 2022 Subjective Patient seen in follow-up of acute hyponatremia, poor appetite since 2 weeks [employer], generalized weakness, acute UTI. Patient lying in bed, room air, NAD reports no new acute events overnight pt reports no issues with liquids but reports having trouble swallowing solid food. Had choking episode on pills yesterday. Speech consulted for eval. GI also consulted given early satiety and no h/o scope/gi eval in the past. Plan for EGD today Pt denies any more fevers, chills, also denies any abd.pain, chest pain, shor tness of breath. Review of Systems Review of Systems: All systems reviewed & are unremarkable except as noted in Subjective Physical Exam Physical Exam: GENERAL: Alert and oriented x3. NAD, on RA. HEENT: NC/AT. EOMI. Pupils equal, round and reactive to light. NECK: No JVD, no neck masses. HEART: S1 and S2 heard. Regular rate and rhythm. No murmur, no gallop. RESPIRATORY: Normal AP diameter. No accessory muscle use. No wheezing, no crackles. ABDOMEN: Soft, bowel sounds present, nontender, no distention. NEURO: No facial droop.Speech fluent. Obeys simple commands. Moves extremities. EXTREMITIES: No edema, no erythema seen. Results & Data Results & Data ([facility]) Vital Signs (Past 12 Hours) Vital Signs Temp Pulse Pulse Resp BP Pulse Ox O2 Del Method 07/18/22 09:57 Room Air 07/18/22 07:00 36.9 C 65 18 127/73 92 Room Air 07/18/22 03:54 36.7 C 95 H 18 128/72 94 Room Air 07/17/22 23:15 66 07/17/22 22:31 36.7 C 92 H 18 122/68 95 Room Air Laboratory Results 07/18/22 07/18/22 07/18/22 Range/Units 06:12 06:12 05:55 WBC 12.87 H (4.8-10.8) K/ul RBC 4.02 L (4.70-6.10) M/uL Hgb 12.1 L (14.0-18.0) g/dl Hct 35.4 L (42.0-52.0) % MCV 88.1 (80.0-100.0) fL MCH 30.1 (25.0-34.0) pg MCHC 34.2 (32.0-36.0) g/dL RDW Std Deviation 42.8 (36.4-46.3) fL RDW Coeff of Ariane 13.2 (11.5-14.5) % Plt Count 371 (130-400) K/uL MPV 11.2 (9.4-12.4) fL Sodium 132 L (136-145) mmol/L Potassium 4.4 (3.5-5.1) mmol/L Chloride 96 L (98-107) mmol/L Carbon Dioxide 32 (21-32) mmol/L Anion Gap 4 (3-11) BUN 11 (6-23) mg/dl Creatinine 0.75 (0.6-1.4) mg/dl Est Cr Clr Drug Dosing 101.2 ml/min Est GFR ( Amer) 107.7 ml/min Est GFR (Non-Af Amer) 92.9 ml/min BUN/Creatinine Ratio 14.7 (10-20) Glucose 166 H (70-99(Fasting)) mg/dl POC Glucose 156 H (70-99) mg/dl Calcium 8.3 L (8.5-10.1) mg/dl Phosphorus 3.1 (2.5-4.9) mg/dl Magnesium 1.8 (1.7-2.4) mg/dl 07/17/22 07/17/22 07/17/22 Range/Units 20:26 16:47 11:45 WBC (4.8-10.8) K/ul RBC (4.70-6.10) M/uL Hgb (14.0-18.0) g/dl Hct (42.0-52.0) % MCV (80.0-100.0) fL MCH (25.0-34.0) pg MCHC (32.0-36.0) g/dL RDW Std Deviation (36.4-46.3) fL RDW Coeff of Ariane (11.5-14.5) % Plt Count (130-400) K/uL MPV (9.4-12.4) fL Sodium (136-145) mmol/L Potassium (3.5-5.1) mmol/L Chloride (98-107) mmol/L Carbon Dioxide (21-32) mmol/L Anion Gap (3-11) BUN (6-23) mg/dl Creatinine (0.6-1.4) mg/dl Est Cr Clr Drug Dosing ml/min Est GFR ( Amer) ml/min Est GFR (Non-Af Amer) ml/min BUN/Creatinine Ratio (10-20) Glucose (70-99(Fasting)) mg/dl POC Glucose 291 H 244 H 253 H (70-99) mg/dl Calcium (8.5-10.1) mg/dl Phosphorus (2.5-4.9) mg/dl Magnesium (1.7-2.4) mg/dl 07/17/22 Range/Units 11:42 WBC (4.8-10.8) K/ul RBC (4.70-6.10) M/uL Hgb (14.0-18.0) g/dl Hct (42.0-52.0) % MCV (80.0-100.0) fL MCH (25.0-34.0) pg MCHC (32.0-36.0) g/dL RDW Std Deviation (36.4-46.3) fL RDW Coeff of Ariane (11.5-14.5) % Plt Count (130-400) K/uL MPV (9.4-12.4) fL Sodium (136-145) mmol/L Potassium (3.5-5.1) mmol/L Chloride (98-107) mmol/L Carbon Dioxide (21-32) mmol/L Anion Gap (3-11) BUN (6-23) mg/dl Creatinine (0.6-1.4) mg/dl Est Cr Clr Drug Dosing ml/min Est GFR ( Amer) ml/min Est GFR (Non-Af Amer) ml/min BUN/Creatinine Ratio (10-20) Glucose (70-99(Fasting)) mg/dl POC Glucose 336 H* (70-99) mg/dl Calcium (8.5-10.1) mg/dl Phosphorus (2.5-4.9) mg/dl Magnesium (1.7-2.4) mg/dl Medications Administered Current Inpatient Medications Acetaminophen (Acetaminophen 325 Mg Tab) 650 mg PO Q4H PRN PRN Reason: Pain or Fever Stop: 08/12/22 14:10 Last Admin: 07/15/22 15:35 Dose: 650 mg Al Hydrox/Mg Hydrox/Simethicone (Aluminum/Magnesium Susp 30 Ml Udc) 15 ml PO Q4H PRN PRN Reason: Dyspepsia Stop: 08/12/22 14:10 Aspirin (Aspirin 81 Mg Ectab) 81 mg PO DAILY [facility] Stop: 08/13/22 08:59 Last Admin: 07/17/22 08:23 Dose: 81 mg Cyanocobalamin (Cyanocobalamin (B-12) 100 Mcg Tablet) 100 mcg PO QAM [facility] Stop: 08/13/22 12:59 Last Admin: 07/18/22 08:13 Dose: 100 mcg Dextrose (Dextrose 50% 50 Ml Syringe) 25 - 50 ml IV UD PRN; Protocol PRN Reason: Hypoglycemia Protocol Stop: 08/12/22 14:10 Enoxaparin Sodium (Enoxaparin Inj 40 Mg/0.4 Ml Syr) 40 mg SQ Q24H [facility] Stop: 08/12/22 21:59 Last Admin: 07/16/22 20:59 Dose: 40 mg Ferrous Sulfate (Ferrous Sulfate 325 Mg Tab) 325 mg PO QAM [facility] Stop: 08/14/22 08:59 Last Admin: 07/18/22 08:12 Dose: 325 mg Glucagon (Glucagon For Inj 1 Mg Vial) 1 mg SQ UD PRN; Protocol PRN Reason: Hypoglycemia Protocol Stop: 08/12/22 14:10 Glucose (Glucose 10 Tab/Tube) 4 - 8 tab PO UD PRN; Protocol PRN Reason: Hypoglycemia Treatment Stop: 08/12/22 14:10 Glucose (Glucose 40% Gel 15 Gm Tube) 15 - 30 gm PO UD PRN; Protocol PRN Reason: Hypoglycemia Protocol Stop: 08/12/22 14:10 Promethazine HCl 6.25 mg/ (Sodium Chloride) 50.25 mls @ 201 mls/hr IV Q6H PRN PRN Reason: Nausea And Vomiting Stop: 08/12/22 14:10 Piperacillin Sod/Tazobactam (Sod 3.375 gm/ Dextrose) 115 mls @ 28.75 mls/hr IV Q8H [facility]; Protocol Stop: 07/26/22 14:59 Last Admin: 07/18/22 06:08 Dose: 28.8 mls/hr Insulin Aspart (Insulin Aspart Per Unit) 0 units SC Q6 [facility] Stop: 08/17/22 05:59 Last Admin: 07/18/22 06:08 Dose: 1 units Insulin Human NPH (Insulin Human Nph) 16 units SQ BIDM [facility] Stop: 08/12/22 20:59 Last Admin: 07/18/22 08:22 Dose: 16 units Lisinopril (Lisinopril 10 Mg Tab) 30 mg PO QAM [facility] Stop: 08/13/22 08:59 Last Admin: 07/18/22 08:12 Dose: 30 mg Magnesium Hydroxide (Magnesium Hydroxide Susp 30 Ml Udc) 30 ml PO Q12H PRN PRN Reason: Constipation Stop: 08/12/22 14:10 Magnesium Oxide (Magnesium Oxide 400 Mg Tab) 400 mg PO BID [facility] Stop: 08/15/22 14:19 Last Admin: 07/18/22 08:12 Dose: 400 mg Miscellaneous (Carbohydrates For Hypoglycemia ) 15 - 30 gm PO UD PRN PRN Reason: Hypoglycemia Protocol Stop: 08/12/22 14:10 Multivitamins/Minerals (Cerovite Adv Formula Tab) 1 tab PO QAM [facility] Stop: 08/13/22 08:59 Last Admin: 07/18/22 08:13 Dose: 1 tab Pantoprazole Sodium (Pantoprazole 40 Mg Tab) 40 mg PO BID [facility] Stop: 08/13/22 20:59 Last Admin: 07/18/22 08:13 Dose: 40 mg Polyethylene Glycol (Polyethylene (Miralax) 17 Gm Pack) 17 gm PO DAILY PRN PRN Reason: Constipation Stop: 08/12/22 14:10 Potassium Phosphate (Pot Phosphate Monobasic W/ Sod Tab) 2 tab PO QID [facility] Stop: 07/18/22 13:01 Last Admin: 07/18/22 08:12 Dose: 2 tab Pravastatin Sodium (Pravastatin Sod 10 Mg Tab) 10 mg PO QAM [facility] Stop: 08/13/22 08:59 Last Admin: 07/18/22 08:13 Dose: 10 mg Senna/Docusate Sodium (Docusate Sodium/Senna 50/8.6mg Tab) 1 tab PO QAM [facility] Stop: 08/12/22 14:10 Last Admin: 07/18/22 08:15 Dose: Not Given
[2022-07-18] MEDS ORDERED: LIDOCAINE 2% MPF LOCAL 5 ML VIAL INFIL ONE (12:07)
[2022-07-18] MEDS ORDERED: PROPOFOL IV EMULSION 10 MG/ML 20 ML VIAL IV ONE ×2 (12:07→13:30)
--- NOTE | 2022-07-18 12:36 | Anesthesiology Consultation ---
Date of Service July 18, 2022 Assessment & Plan Chart Review Chart Review: Acceptable Risk for Surgery Consults Requested none ASA ASA3 Proposed Anesthesia Anesthesia Type: MAC Risk / Benefits Reviewed With: PT / POA / Parent / Guardian, Accepts Plan and Informed Consent Obtained History Surgery Operation Date: 07/18/22 16:55 Proposed Procedures p Esophagogastroduodenoscopy Dr Diaz - Samaria Cochran MD Height/Weight Height: 5 ft 9 in Weight: 89.2 kg Allergies Allergy/AdvReac Type Severity Reaction Status Date / Time No Known Allergies Allergy Mild Unverified 07/13/22 09:58 Medications Home Medications Medication Instructions Recorded Confirmed Last Taken aspirin 81 mg capsule 81 mg PO DAILY 07/13/22 07/13/22 07/12/22 hydrochlorothiazide 12.5 mg capsule 12.5 mg PO DAILY 07/13/22 07/13/22 07/12/22 insulin NPH isoph U-100 human 100 14 unit subcut BID 07/13/22 07/13/22 07/12/22 unit/mL subcutaneous suspension (Novolin N NPH U-100 Insulin isophane) insulin regular human 100 unit/mL 6 unit subcut QDD 07/13/22 07/13/22 07/13/22 injection solution (Novolin R Regular U-100 Insulin) insulin regular human 100 unit/mL 8 unit subcut QAM 07/13/22 07/13/22 07/13/22 injection solution (Novolin R Regular U-100 Insulin) lisinopril 30 mg tablet 30 mg PO QAM 07/13/22 07/13/22 07/12/22 metformin 500 mg tablet,extended 1,000 mg PO QDD 07/13/22 07/13/22 07/12/22 release 24 hr pravastatin 10 mg tablet 10 mg PO QAM 07/13/22 07/13/22 07/12/22 vitamins A,C,F-wqba-ccudyc 2,148 1 tab PO QAM 07/13/22 07/13/22 07/12/22 mcg-113 mg-45 mg-17.4 mg tablet (PreserVision AREDS) Active Medications Generic Name Dose Route Start Last Admin Trade Name Freq PRN Reason Stop Dose Admin Acetaminophen 650 mg 07/13/22 14:11 07/15/22 15:35 Acetaminophen 325 Mg Tab PO 08/12/22 14:10 650 mg Q4H PRN Administration Pain or Fever Aspirin 81 mg 07/14/22 09:00 07/18/22 10:35 Aspirin 81 Mg Ectab PO 08/13/22 08:59 81 mg DAILY [facility] Administration Cyanocobalamin 100 mcg 07/14/22 13:00 07/18/22 08:13 Cyanocobalamin (B-12) 100 Mcg Tablet PO 08/13/22 12:59 100 mcg QAM [facility] Administration Enoxaparin Sodium 40 mg 07/13/22 22:00 07/16/22 20:59 Enoxaparin Inj 40 Mg/0.4 Ml Syr SQ 08/12/22 21:59 40 mg Q24H [facility] Administration Ferrous Sulfate 325 mg 07/15/22 09:00 07/18/22 08:12 Ferrous Sulfate 325 Mg Tab PO 08/14/22 08:59 325 mg QAM [facility] Administration Piperacillin Sod/Tazobactam 115 mls @ 28.75 mls/hr 07/16/22 15:00 07/18/22 10:41 Sod 3.375 gm/ Dextrose IV 07/26/22 14:59 Infused Q8H [facility] Infusion Protocol Insulin Aspart 0 units 07/18/22 06:00 07/18/22 12:17 Insulin Aspart Per Unit SC 08/17/22 05:59 Not Given Q6 [facility] Insulin Human NPH 16 units 07/17/22 17:00 07/18/22 08:22 Insulin Human Nph SQ 08/12/22 20:59 16 units BIDM [facility] Administration Lisinopril 30 mg 07/14/22 09:00 07/18/22 08:12 Lisinopril 10 Mg Tab PO 08/13/22 08:59 30 mg QAM [facility] Administration Magnesium Oxide 400 mg 07/16/22 14:20 07/18/22 08:12 Magnesium Oxide 400 Mg Tab PO 08/15/22 14:19 400 mg BID [facility] Administration Multivitamins/Minerals 1 tab 07/14/22 09:00 07/18/22 08:13 Cerovite Adv Formula Tab PO 08/13/22 08:59 1 tab QAM [facility] Administration Pantoprazole Sodium 40 mg 07/14/22 21:00 07/18/22 08:13 Pantoprazole 40 Mg Tab PO 08/13/22 20:59 40 mg BID [facility] Administration Potassium Phosphate 2 tab 07/16/22 17:00 07/18/22 08:12 Pot Phosphate Monobasic W/ Sod Tab PO 07/18/22 13:01 2 tab QID [facility] Administration Pravastatin Sodium 10 mg 07/14/22 09:00 07/18/22 08:13 Pravastatin Sod 10 Mg Tab PO 08/13/22 08:59 10 mg QAM [facility] Administration Senna/Docusate Sodium 1 tab 07/13/22 14:11 07/18/22 08:15 Docusate Sodium/Senna 50/8.6mg Tab PO 08/12/22 14:10 Not Given QAM [facility] NPO Date Last Intake of Fluids: 07/17/22 Time Last Intake of Fluids: 23:59 Past Medical History Medical History (Updated 07/17/22 @ 10:36 by HAILEE Trinidad) HLD (hyperlipidemia) HTN (hypertension) T2DM (type 2 diabetes mellitus) Thrombocytopenia Exercise / Class Metabolic Activity II 4-5 Yardwork/Stairs/Walk up hill Past Family History Family History (Updated 07/13/22 @ 12:20 by Amee Le PA-C) Mother Breast cancer Father Coronary heart disease Past Surgical History Surgical History (Updated 07/13/22 @ 12:03 by Amee Le PA-C) Hx of fracture of femur Past Anesthesia History No Hx of Anesthesia Complications History of PONV No Hx of PONV Social History Smoking Status: Former smoker tobacco type: pipe and cigars Do You Dip or Chew Tobacco: Yes Hx Alcohol Use: No Hx Substance Use: No substance use type: does not use Physical Exam Vital Signs Last Vital Signs Temp 37.0 C 07/18/22 11:40 Pulse 73 07/18/22 11:40 Resp 18 07/18/22 11:40 BP 128/74 07/18/22 11:40 Pulse Ox 95 07/18/22 11:40 O2 Del Method Room Air 07/18/22 11:40 ENMT Mallampati Class: II Respiratory normal respiratory effort Auscultation: lungs clear to auscultation bilaterally Cardiovascular Rate/Rhythm: regular rate and regular rhythm Psychiatric Orientation: alert and oriented x 3 Testing Laboratory Results 07/18/22 06:12 07/18/22 06:12 PT 12.2 Seconds (9.0-12.0) H 07/13/22 09:30 INR 1.2 (0.9-1.1) H 07/13/22 09:30 Urine Color [place] 07/13/22 10:48 Urine Appearance Cloudy (Clear) A 07/13/22 10:48 Urine pH 5.0 (4.5-7.5) 07/13/22 10:48 Ur Specific [place] 1.021 (1.000-1.030) 07/13/22 10:48 Urine Protein Trace (Negative) H 07/13/22 10:48 Urine Glucose (UA) Trace (Negative) H 07/13/22 10:48 Urine Ketones 1+ (Negative) H 07/13/22 10:48 Urine Nitrite Positive (Negative) A 07/13/22 10:48 Ur Leukocyte Esterase Trace (Negative) H 07/13/22 10:48 Urine WBC (Auto) 1-5 /hpf (0-5) 07/13/22 10:48 Urine RBC (Auto) 5-10 /hpf (0-4) H 07/13/22 10:48 U Hyaline Cast (Auto) >30 /lpf (0-5) H 07/13/22 10:48 U Epithel Cells (Auto) 10-20 /lpf (0-5) H 07/13/22 10:48 Urine Bacteria (Auto) Negative (Negative) 07/13/22 10:48 07/15/22 18:10 Aerobic Blood Culture - Preliminary Blood No growth in Aerobic bottle after 48 hours. Anaerobic Blood Culture - Final 07/15/22 18:10 Aerobic Blood Culture - Preliminary Blood No growth in Aerobic bottle after 48 hours. Anaerobic Blood Culture - Preliminary No growth in Anaerobic bottle after 48 hours. 07/15/22 11:22 Urine Culture - Final Urine,Clean Catch No growth - less than 1,000 colonies/mL. 07/13/22 11:55 Aerobic Blood Culture - Preliminary Blood No growth in Aerobic bottle after 48 hours. Anaerobic Blood Culture - Preliminary No growth in Anaerobic bottle after 48 hours. 07/13/22 12:08 Aerobic Blood Culture - Preliminary Blood No growth in Aerobic bottle after 48 hours. Anaerobic Blood Culture - Preliminary No growth in Anaerobic bottle after 48 hours. 07/13/22 13:33 Urine Culture - Final Urine,Clean Catch More than three types of organisms present, all moderate counts mixed probable skin mohit. No further identifications or sensitivities to follow. 07/18/22 07/18/22 12:12 05:55 POC Glucose 184 H 156 H
--- NOTE | 2022-07-18 12:54 | History & Physical Report ---
Date of Service July 18, 2022 Assessment & Plan Admission and Anticipated Discharge Date Admission Date: July 13, 2022 History of Present Illness Primary Care Provider: Milka Allison MD Dysphagia CV: RRR Resp: CTA Abd: soft A/P: EGD Allergies Allergy/AdvReac Type Severity Reaction Status Date / Time No Known Allergies Allergy Mild Unverified 07/13/22 09:58 Home Medications Medication Instructions Recorded Confirmed Type aspirin 81 mg capsule 81 mg PO DAILY 07/13/22 07/13/22 History hydrochlorothiazide 12.5 mg capsule 12.5 mg PO DAILY 07/13/22 07/13/22 History insulin NPH isoph U-100 human 100 14 unit subcut BID 07/13/22 07/13/22 History unit/mL subcutaneous suspension (Novolin N NPH U-100 Insulin isophane) insulin regular human 100 unit/mL 6 unit subcut QDD 07/13/22 07/13/22 History injection solution (Novolin R Regular U-100 Insulin) insulin regular human 100 unit/mL 8 unit subcut QAM 07/13/22 07/13/22 History injection solution (Novolin R Regular U-100 Insulin) lisinopril 30 mg tablet 30 mg PO QAM 07/13/22 07/13/22 History metformin 500 mg tablet,extended 1,000 mg PO QDD 07/13/22 07/13/22 History release 24 hr pravastatin 10 mg tablet 10 mg PO QAM 07/13/22 07/13/22 History vitamins A,C,N-wroi-opslor 2,148 1 tab PO QAM 07/13/22 07/13/22 History mcg-113 mg-45 mg-17.4 mg tablet (PreserVision AREDS) Past Med/Surg History Medical History (Updated 07/17/22 @ 10:36 by HAILEE Trinidad) HLD (hyperlipidemia) HTN (hypertension) T2DM (type 2 diabetes mellitus) Thrombocytopenia Surgical History (Updated 07/13/22 @ 12:03 by Amee Le PA-C) Hx of fracture of femur Family History (Updated 07/13/22 @ 12:20 by Amee Le PA-C) Mother Breast cancer Father Coronary heart disease Social History (Updated 07/13/22 @ 12:17 by Amee Le PA-C) Smoking Status: Former smoker Second Hand Exposure: Yes; Do You Dip or Chew Tobacco: Yes; Tobacco Cessation Education Requested by Patient: Yes Hx Alcohol Use: No Hx Substance Use: No Preferred Language: Malay Communication Ability: Effective Parking Meter Attendant Required: No Beliefs That Will Affect Care: None Current Living Situation: Other Current Living Situation Comment: lives with brother Zach Other Information That Helps Us Care for You: No Feels Safe at Home: Yes Safety Concerns: Feels Safe At This Time Assistive Devices: None Results & Data Results & Data [facility]) Vital Signs (Past 12 Hours) Vital Signs Temp Pulse Resp BP Pulse Ox O2 Del Method 07/18/22 12:30 36.7 C 74 18 134/68 94 Room Air 07/18/22 11:40 37.0 C 73 18 128/74 95 Room Air 07/18/22 09:57 Room Air 07/18/22 07:00 36.9 C 65 18 127/73 92 Room Air 07/18/22 03:54 36.7 C 95 H 18 128/72 94 Room Air Code Status & VTE Plan VTE Prophylaxis Plan VTE Prophylaxis will be ordered: Yes
[2022-07-18] MEDS ORDERED: ePHEDrine sulfate 50 MG/ML SYR ONE (13:30)
--- NOTE | 2022-07-18 13:36 | GI REPORT ---
Patient Name: Alexander Renae Procedure Date: 07/18/2022 12:34 PM Date of : 1950 Admit Type: Inpatient Age: 71 Gender: Male Attending MD: Samaria Cochran MD, Procedure: Upper GI endoscopy Providers: Samaria Cochran MD Referring MD: Yousuf Davis Md Indications: Dysphagia Medicines: See the Anesthesia note for documentation of the administered medications Complications: No immediate complications. Estimated Blood Loss: Estimated blood loss: none. Procedure: Pre-Anesthesia Assessment: - ASA Grade Assessment: III - A patient with severe systemic disease. After obtaining informed consent, the endoscope was passed under direct vision. Throughout the procedure, the patient's blood pressure, pulse, and oxygen saturations were monitored continuously. The Endoscope was introduced through the mouth, and advanced to the second part of duodenum. The upper GI endoscopy was accomplished without difficulty. Findings: The Z-line was irregular and was found 36 cm from the incisors. The examined esophagus was normal. The gastroesophageal flap valve was visualized endoscopically and classified as Hill Grade II (fold present, opens with respiration). The entire examined stomach was normal. The examined duodenum was normal. A guidewire was placed and the scope was withdrawn. Dilation was performed at the gastroesophageal junction with a Savary dilator with no resistance at 16 mm. Impression: - Z-line irregular, 36 cm from the incisors. - Normal esophagus. - Gastroesophageal flap valve classified as Hill Grade II (fold present, opens with respiration). - Normal stomach. - Normal examined duodenum. - Dilation performed at the gastroesophageal junction. - No specimens collected. Recommendation: - Discharge patient to floor. No etiology of dysphagia found on this exam -- he does not have obstructive esophageal dysphagia. Would recommend eval by speech to rule out oropharyngeal dysphagia. If no evidence of oropharyngeal dysphagia oin speech eval, then please adv diet and consider d/c home. Samaria Cochran M.D. Samaria Cochran MD 07/18/2022 1:35:42 PM This report has been signed electronically. Note Initiated On: 07/18/2022 12:34 PM Number of Addenda: 0 I attest to the content of the Intraoperative Record and orders documented therein, exceptions below {[id number]}
--- NOTE | 2022-07-18 13:58 | Anesthesiology Progress Note ---
Date of Service July 18, 2022 Anesthesia Post Procedure Vital Signs Vital Signs: Temp Pulse Pulse Resp BP Pulse Ox O2 Del Method 07/18/22 13:44 81 16 91/49 L 93 Room Air 07/18/22 13:27 85 16 100/55 L 93 Room Air 07/18/22 12:30 36.7 C 74 18 134/68 94 Room Air 07/18/22 11:40 37.0 C 73 18 128/74 95 Room Air 07/18/22 09:57 Room Air 07/18/22 07:00 36.9 C 65 18 127/73 92 Room Air 07/18/22 03:54 36.7 C 95 H 18 128/72 94 Room Air 07/17/22 23:15 66 07/17/22 22:31 36.7 C 92 H 18 122/68 95 Room Air 07/17/22 19:55 Room Air 07/17/22 18:50 37.0 C 66 18 105/54 L 94 Room Air 07/17/22 15:30 79 Transfer of Care Handoff Completed per policy Notes Mental Status: alert / awake / arousable and participated in evaluation Nausea / Vomiting: adequately controlled Pain: adequately controlled Airway Patency, RR, SpO2: stable & adequate BP & HR: stable & adequate Hydration State: stable & adequate Anesthetic Complications: no major complications apparent and Pt Satisfied with anesthetic care
[2022-07-19] MEDS: PIPERACILLIN/TAZOBACTAM 3.375 GM in DEXTROSE 5% 100 ML IV SCH ×3 (06:09→23:08)
[2022-07-19] MEDS: CEROVITE ADV FORMULA TAB PO SCH (07:39)
[2022-07-19] MEDS: ASPIRIN 81 MG ECTAB PO SCH (07:39)
[2022-07-19] MEDS: FERROUS SULFATE 325 MG TAB PO SCH (07:39)
[2022-07-19] MEDS: lisinopril 10 MG TAB PO SCH (07:39)
[2022-07-19] MEDS: MAGNESIUM OXIDE 400 MG TAB PO SCH ×2 (07:39→20:52)
[2022-07-19] MEDS: PANTOprazole 40 MG TAB PO SCH ×2 (07:39→20:52)
[2022-07-19] MEDS: DOCUSATE SODIUM/SENNA 50/8.6MG TAB PO SCH (07:39)
[2022-07-19] MEDS: PRAVASTATIN SOD 10 MG TAB PO SCH (07:40)
[2022-07-19] MEDS: CYANOCOBALAMIN (B-12) 100 MCG TABLET PO SCH (07:40)
[2022-07-19 07:46] LABS: Hematocrit (blood only) 33.7 % (42.0-52.0); Hemoglobin 11.1 g/dl (14.0-18.0); Mean Corpuscular Hemoglobin 29.9 pg (25.0-34.0); Mean Corpuscular Hgb Conc 32.9 g/dL (32.0-36.0); Mean Corpuscular Volume 90.8 fL (80.0-100.0); Mean Platelet Volume 10.1 fL (9.4-12.4); Platelet Count 476 K/uL (130-400); RDW Coefficient of Variation 13.7 % (11.5-14.5); RDW Standard Deviation 45.5 fL (36.4-46.3); Red Blood Count 3.71 M/uL (4.70-6.10); White Blood Count 10.89 K/ul (4.8-10.8)
[2022-07-19 08:01] LABS: BUN Creatinine Ratio 13.3 (10-20); Calcium 8.1 mg/dl (8.5-10.1); Creatinine Clr Calc Pharmacy 99.6 ml/min; Est GFR (African American) 107.7 ml/min; Est GFR (Non-African American) 92.9 ml/min; Magnesium 1.8 mg/dl (1.7-2.4); Phosphorus 2.8 mg/dl (2.5-4.9); Potassium 4.7 mmol/L (3.5-5.1)
[2022-07-19] MEDS: INSULIN ASPART PER UNIT SC SCH ×4 (08:16→20:52)
[2022-07-19] MEDS: INSULIN HUMAN NPH SQ SCH ×2 (08:17→17:46)
--- NOTE | 2022-07-19 08:56 | Fluoroscopy Report ---
FL barium swallow CLINICAL HISTORY: EGD normal, cant swallow solids COMPARISON STUDY: None. FLUOROSCOPY TIME: 1.3 minutes FLUOROSCOPY IMAGES: 17 Ka,r: 42.33 mGy FINDINGS: Severe esophageal dysmotility was noted. No esophageal mass or stricture was identified. Miguel bush was unable to swallow the 13 mm barium tablet. No reflux was elicited. No hiatal hernia was lou ntified. IMPRESSION: 1. Severe esophageal dysmotility. 2. No esophageal mass or stricture identified. ACT 112: Negative or not required by law. Electronically signed by: Russell Jeffries M.D. 07/19/2022 8:54 AM
--- NOTE | 2022-07-19 11:01 | Hospitalist Progress Note ---
Date of Service July 19, 2022 Assessment & Plan (1) Acute hyponatremia: (2) Leukocytosis: (3) Poor appetite: (4) Elevated troponin: (5) T2DM (type 2 diabetes mellitus): (6) HTN (hypertension): (7) HLD (hyperlipidemia): Plan 71 yo M who w/ insulin-dependent T2DM, HTN, HLD, idiopathic thrombocytopenia who presents to ED secondary to generalized weakness and decreased appetite x2 weeks ago [employer] after getting flu-shot. He is being managed for the following: Acute hyponatremia Poor appetite x2 weeks at presentation Circumferential wall thickening of esophagus on CT scan Generalized weakness Admitting sodium of 126, serum osmolality 283, urine sodium 23 and urine osmolality 477. No prior history of hyponatremia on outpatient chart review 07/14, sodium ranged from 1 37-1 40 during 2019 to 2022. Correlates w. lack of appetite and poor intake over the last 2 weeks [employer]; however uncertain what is driving that at this time, pt reports started day after flu shot, also could be UTI vs esophagitis. Home hydrochlorothiazide on hold, encourage p.o. intake. PT/OT, consulted director of email marketing, low albumin, low prealb drank his protein shakes and milk yesterday. Na 131 today Pt now w/ complain of difficulty swallowing solid food; has early satiety. GI consulted given no prior cancer screening. Underwent EGD with GI, and also had speech eval. Has esophageal dysmotility. Discussed with GI, plan to follow-up as outpatient, appointment already scheduled. Anemia: Outpatient chart review 07/14 with hemoglobin of 14.6 to 16.0 from [id number]. Admitting hemoglobin 11.8, MCV normal. Iron 18 and transferrin less than 95, ferritin appears elevated likely could be acute phase reactant, folate normal, vitamin B12 low normal. Started iron supplement and vitamin B12 supplement on 07/14. Leukocytosis Abnormal urinalysis Esophagitis Admitting Urine shows positive nitrites, leukocyte esterase but negative bacteria He received 2 g Rocephin in ED on 07/13, will continue for now until blood and urine culture results 07/13 Urine Cx: mixed mohit 07/13 blood cx: NG 48 hours 07/15 Bl Cx (sent because pt feeling lousy/sweaty/borderline temp around the time but no specific symptom): NG 48 hrs Resent Urine Cx 07/15 - no growth WBC stalled around 14-15K, procal remains elevated (but no baseline this admission), had one time temp of 38.3C on 07/15, Rocephin and metron DC'd, zosyn since 07/16, consult ID. ----> finally WBC trending down and temp better;infection workup so far negative. Await ID recs. Elevated troponin/demand ischemia secondary to acute illness At admission, patient denies chest pain, shortness of breath or exertional symptoms Admitting EKG was with t wave inversion II and III and aVF. Troponin trend downtrending and normal. 07/14 echo with EF 60 to 65%, LV size and systolic function normal. Patient remains chest pain-free. Prolonged QTC: 527 at presentation, 415 on repeat EKG on following day. Avoid QTc prolonging meds. Abnormal CT scan Circumferential wall thickening of esophagus, possible esophagitis Could be possible source of patient's decreased intake although denies any GERD symptoms c/w PPI started at admission, continue to monitor. GI on board, appreciate recs. as above Insulin-dependent T2DM: SSI while inpatient. A1c of 7.3 on 06/29/2022. Hypertension: Continue lisinopril but hold HCTZ in setting of hyponatremia, if no improvement in Na, consider holding lisinopril as well Hyperlipidemia: Continue statin DVT px: SQ Lovenox Dispo: med tele, PT/OT consults placed FULL CODE PCP: Dr. Allison Admission and Anticipated Discharge Date Admission Date: July 13, 2022 Subjective Patient seen in follow-up of acute hyponatremia, poor appetite since 2 weeks [employer], generalized weakness, acute UTI. Patient lying in bed, room air, NAD reports no new acute events overnight pt reports no issues with liquids but reports having trouble swallowing solid food Underwent EGD with GI, and also had speech eval. Has esophageal dysmotility. Discussed with GI, plan to follow-up as outpatient, appointment already scheduled. Pt denies any more fevers, chills, also denies any abd.pain, chest pain, shortness of breath. Says he has been ambulating to the bathroom, without any dizziness or lightheadedness. Review of Systems Review of Systems: All systems reviewed & are unremarkable except as noted in Subjective Physical Exam 2 Physical Exam: GENERAL: Alert and oriented x3. NAD, on RA. HEENT: NC/AT. EOMI. Pupils equal, round and reactive to light. NECK: No JVD, no neck masses. HEART: S1 and S2 heard. Regular rate and rhythm. No murmur, no gallop. RESPIRATORY: Normal AP diameter. No accessory muscle use. No wheezing, no crackles. ABDOMEN: Soft, bowel sounds present, nontender, no distention. NEURO: No facial droop.Speech fluent. Obeys simple commands. Moves extremities. EXTREMITIES: No edema, no erythema seen. Results & Data Results & Data ([facility]) Vital Signs (Past 12 Hours) Vital Signs Temp Pulse Resp BP BP Pulse Ox O2 Del Method 07/19/22 07:42 36.8 C 71 14 121/70 95 Room Air 07/19/22 04:00 37.3 C 67 18 118/74 93 Room Air Laboratory Results 07/19/22 07/19/22 07/19/22 Range/Units 11:21 07:26 06:53 WBC (4.8-10.8) K/ul RBC (4.70-6.10) M/uL Hgb (14.0-18.0) g/dl Hct (42.0-52.0) % MCV (80.0-100.0) fL MCH (25.0-34.0) pg MCHC (32.0-36.0) g/dL RDW Std Deviation (36.4-46.3) fL RDW Coeff of Ariane (11.5-14.5) % Plt Count (130-400) K/uL MPV (9.4-12.4) fL Sodium 131 L (136-145) mmol/L Potassium 4.7 (3.5-5.1) mmol/L Chloride 98 (98-107) mmol/L Carbon Dioxide 29 (21-32) mmol/L Anion Gap 4 (3-11) BUN 10 (6-23) mg/dl Creatinine 0.75 (0.6-1.4) mg/dl Est Cr Clr Drug Dosing 99.6 ml/min Est GFR ( Amer) 107.7 ml/min Est GFR (Non-Af Amer) 92.9 ml/min BUN/Creatinine Ratio 13.3 (10-20) Glucose 178 H (70-99(Fasting)) mg/dl POC Glucose 180 H 174 H (70-99) mg/dl Calcium 8.1 L (8.5-10.1) mg/dl Phosphorus 2.8 (2.5-4.9) mg/dl Magnesium 1.8 (1.7-2.4) mg/dl 07/19/22 07/18/22 07/18/22 Range/Units 06:53 22:48 20:11 WBC 10.89 H (4.8-10.8) K/ul RBC 3.71 L (4.70-6.10) M/uL Hgb 11.1 L (14.0-18.0) g/dl Hct 33.7 L (42.0-52.0) % MCV 90.8 (80.0-100.0) fL MCH 29.9 (25.0-34.0) pg MCHC 32.9 (32.0-36.0) g/dL RDW Std Deviation 45.5 (36.4-46.3) fL RDW Coeff of Ariane 13.7 (11.5-14.5) % Plt Count 476 H (130-400) K/uL MPV 10.1 (9.4-12.4) fL Sodium (136-145) mmol/L Potassium (3.5-5.1) mmol/L Chloride (98-107) mmol/L Carbon Dioxide (21-32) mmol/L Anion Gap (3-11) BUN (6-23) mg/dl Creatinine (0.6-1.4) mg/dl Est Cr Clr Drug Dosing ml/min Est GFR ( Amer) ml/min Est GFR (Non-Af Amer) ml/min BUN/Creatinine Ratio (10-20) Glucose (70-99(Fasting)) mg/dl POC Glucose 173 H 215 H (70-99) mg/dl Calcium (8.5-10.1) mg/dl Phosphorus (2.5-4.9) mg/dl Magnesium (1.7-2.4) mg/dl 07/18/22 Range/Units 17:24 WBC (4.8-10.8) K/ul RBC (4.70-6.10) M/uL Hgb (14.0-18.0) g/dl Hct (42.0-52.0) % MCV (80.0-100.0) fL MCH (25.0-34.0) pg MCHC (32.0-36.0) g/dL RDW Std Deviation (36.4-46.3) fL RDW Coeff of Ariane (11.5-14.5) % Plt Count (130-400) K/uL MPV (9.4-12.4) fL Sodium (136-145) mmol/L Potassium (3.5-5.1) mmol/L Chloride (98-107) mmol/L Carbon Dioxide (21-32) mmol/L Anion Gap (3-11) BUN (6-23) mg/dl Creatinine (0.6-1.4) mg/dl Est Cr Clr Drug Dosing ml/min Est GFR ( Amer) ml/min Est GFR (Non-Af Amer) ml/min BUN/Creatinine Ratio (10-20) Glucose (70-99(Fasting)) mg/dl POC Glucose 195 H (70-99) mg/dl Calcium (8.5-10.1) mg/dl Phosphorus (2.5-4.9) mg/dl Magnesium (1.7-2.4) mg/dl Medications Administered Current Inpatient Medications Acetaminophen (Acetaminophen 325 Mg Tab) 650 mg PO Q4H PRN PRN Reason: Pain or Fever Stop: 08/12/22 14:10 Last Admin: 07/15/22 15:35 Dose: 650 mg Al Hydrox/Mg Hydrox/Simethicone (Aluminum/Magnesium Susp 30 Ml Udc) 15 ml PO Q4H PRN PRN Reason: Dyspepsia Stop: 08/12/22 14:10 Aspirin (Aspirin 81 Mg Ectab) 81 mg PO DAILY [facility] Stop: 08/13/22 08:59 Last Admin: 07/19/22 07:39 Dose: 81 mg Cyanocobalamin (Cyanocobalamin (B-12) 100 Mcg Tablet) 100 mcg PO QAM [facility] Stop: 08/13/22 12:59 Last Admin: 07/19/22 07:40 Dose: 100 mcg Dextrose (Dextrose 50% 50 Ml Syringe) 25 - 50 ml IV UD PRN; Protocol PRN Reason: Hypoglycemia Protocol Stop: 08/12/22 14:10 Enoxaparin Sodium (Enoxaparin Inj 40 Mg/0.4 Ml Syr) 40 mg SQ Q24H [facility] Stop: 08/12/22 21:59 Last Admin: 07/16/22 20:59 Dose: 40 mg Ferrous Sulfate (Ferrous Sulfate 325 Mg Tab) 325 mg PO QAM [facility] Stop: 08/14/22 08:59 Last Admin: 07/19/22 07:39 Dose: 325 mg Glucagon (Glucagon For Inj 1 Mg Vial) 1 mg SQ UD PRN; Protocol PRN Reason: Hypoglycemia Protocol Stop: 08/12/22 14:10 Glucose (Glucose 10 Tab/Tube) 4 - 8 tab PO UD PRN; Protocol PRN Reason: Hypoglycemia Treatment Stop: 08/12/22 14:10 Glucose (Glucose 40% Gel 15 Gm Tube) 15 - 30 gm PO UD PRN; Protocol PRN Reason: Hypoglycemia Protocol Stop: 08/12/22 14:10 Promethazine HCl 6.25 mg/ (Sodium Chloride) 50.25 mls @ 201 mls/hr IV Q6H PRN PRN Reason: Nausea And Vomiting Stop: 08/12/22 14:10 Piperacillin Sod/Tazobactam (Sod 3.375 gm/ Dextrose) 115 mls @ 28.75 mls/hr IV Q8H [facility]; Protocol Stop: 07/26/22 14:59 Last Infusion: 07/19/22 10:09 Dose: Infused Insulin Aspart (Insulin Aspart Per Unit) 0 units SC ACHS [facility] Stop: 08/18/22 07:29 Last Admin: 07/19/22 12:32 Dose: 2 units Insulin Human NPH (Insulin Human Nph) 16 units SQ BIDM [facility] Stop: 08/12/22 20:59 Last Admin: 07/19/22 08:17 Dose: 16 units Lisinopril (Lisinopril 10 Mg Tab) 30 mg PO QAM [facility] Stop: 08/13/22 08:59 Last Admin: 07/19/22 07:39 Dose: 30 mg Magnesium Hydroxide (Magnesium Hydroxide Susp 30 Ml Udc) 30 ml PO Q12H PRN PRN Reason: Constipation Stop: 08/12/22 14:10 Magnesium Oxide (Magnesium Oxide 400 Mg Tab) 400 mg PO BID [facility] Stop: 08/15/22 14:19 Last Admin: 07/19/22 07:39 Dose: 400 mg Miscellaneous (Carbohydrates For Hypoglycemia ) 15 - 30 gm PO UD PRN PRN Reason: Hypoglycemia Protocol Stop: 08/12/22 14:10 Multivitamins/Minerals (Cerovite Adv Formula Tab) 1 tab PO QAM [facility] Stop: 08/13/22 08:59 Last Admin: 07/19/22 07:39 Dose: 1 tab Pantoprazole Sodium (Pantoprazole 40 Mg Tab) 40 mg PO BID [facility] Stop: 08/13/22 20:59 Last Admin: 07/19/22 07:39 Dose: 40 mg Polyethylene Glycol (Polyethylene (Miralax) 17 Gm Pack) 17 gm PO DAILY PRN PRN Reason: Constipation Stop: 08/12/22 14:10 Pravastatin Sodium (Pravastatin Sod 10 Mg Tab) 10 mg PO QAM [facility] Stop: 08/13/22 08:59 Last Admin: 07/19/22 07:40 Dose: 10 mg Senna/Docusate Sodium (Docusate Sodium/Senna 50/8.6mg Tab) 1 tab PO QAM [facility] Stop: 08/12/22 14:10 Last Admin: 07/19/22 07:39 Dose: 1 tab
[2022-07-20 02:29] LABS: Babesia microti DNA Not Detected (Not Detected); Q Fever IgG, Phase I NEGATIVE; Q Fever Phase I IgM Antibody NEGATIVE; Q Fever Phase II IgG Antibody NEGATIVE; Q Fever Phase II IgM Antibody NEGATIVE; R. typhi IgG Ab NOT DETECTED; R. typhi IgM Ab NOT DETECTED; RMSF IgG Ab NOT DETECTED; RMSF IgM Ab NOT DETECTED
[2022-07-20] MEDS: PIPERACILLIN/TAZOBACTAM 3.375 GM in DEXTROSE 5% 100 ML IV SCH (06:06)
[2022-07-20 07:08] LABS: Hematocrit (blood only) 33.1 % (42.0-52.0); Hemoglobin 10.7 g/dl (14.0-18.0); Mean Corpuscular Hemoglobin 29.2 pg (25.0-34.0); Mean Corpuscular Hgb Conc 32.3 g/dL (32.0-36.0); Mean Corpuscular Volume 90.2 fL (80.0-100.0); Mean Platelet Volume 10.1 fL (9.4-12.4); Platelet Count 488 K/uL (130-400); RDW Coefficient of Variation 13.6 % (11.5-14.5); RDW Standard Deviation 44.7 fL (36.4-46.3); Red Blood Count 3.67 M/uL (4.70-6.10); White Blood Count 10.85 K/ul (4.8-10.8)
--- NOTE | 2022-07-20 07:40 | Discharge Summary ---
Date of Service July 20, 2022 Admission HPI Per Admitting Provider This is a 71-year-old male who has significant past medical history of insulin- dependent T2DM, HTN, HLD, idiopathic thrombocytopenia who presents to ED secondary to generalized weakness and decreased appetite x2 weeks. 2 weeks ago today he got a flu shot. The next day he woke up and felt like he was sick. Since then he has been having a difficult time eating and that has lead to general weakness. He denies dysphagia and generally just has no appetite. He denies f/c/s, REEVES, dizziness, lightheaded, chest pain, sob, edema, cough, URI sx, nausea, abd pain or diarrhea, and myalgia/arthralgia. He hasn't moved his bowels in 4-5 days. He denies any dysuria, hematuria or increased urinary urgent. He lives with his brother. Typically at home he is able to ambulate w/o assist. Hx of heart burn in past but not recently. ED patient made hemodynamically stable. Lab work notable for significant leukocytosis at 17.96 with predominant neutrophilia, H&H 11.8 and 34.5, sodium 126, chloride 89, BUN 35, creatinine 1.35, glucose 254, total bilirubin 1.7, elevated troponin 50.3 albumin at 2.9. Initial urinalysis revealing possible UTI. CT abdomen pelvis revealed circumferential wall thickening distal esophagus, although this could be underdistention esophagitis could appear similar. Chest x-ray revealed no cardiopulmonary abnormality. He received IV fluids as well as IV ceftriaxone. Admission Exam Per Admitting Provider On exam, General: Elderly man in no distress Eyes: PERRL, conjunctivae normal, not pale, anicteric sclerae, EOM intact bilaterally ENMT: External ear and nose normal, oropharynx normal Neck: Normal visual inspection, no tracheal deviation, no swelling noted Respiratory: Normal respiratory effort, no respiratory distress, lungs clear to auscultation, no crackles and no wheezes Cardiovascular: Pulse is RRR. Heart Sounds: normal S1 and normal S2; no murmurs. Vessels: normal peripheral pulses Extremities: no pedal edema Chest (Breasts): Chest: normal inspection of chest Gastrointestinal (Abdomen): Abdomen is not distended, soft, non-tender to palpation, no guarding, no palpable hepatosplenomegaly, normal bowel sounds Musculoskeletal: No cyanosis or clubbing, all extremities motor strength 5/5 Genitourinary: Skin: No rash noted on gross inspection, No ulcers noted Neurologic: Alert and oriented x 3, No focal weakness, sensation grossly intact Psychiatric: Alert and oriented x 3, euthymic affect, no depressed affect Lymphatic: No cervical and axillary lymphadenopathy Principal Diagnosis weakness, possible UTI Discharge Exam GENERAL: Alert and oriented x3. NAD, on RA. HEENT: NC/AT. EOMI. Pupils equal, round and reactive to light. NECK: No JVD, no neck masses. HEART: S1 and S2 heard. Regular rate and rhythm. No murmur, no gallop. RESPIRATORY: Normal AP diameter. No accessory muscle use. No wheezing, no crackles. ABDOMEN: Soft, bowel sounds present, nontender, no distention. NEURO: No facial droop.Speech fluent. Obeys simple commands. Moves extremities. EXTREMITIES: No edema, no erythema seen. Discharge Data Allergies Allergy/AdvReac Type Severity Reaction Status Date / Time No Known Allergies Allergy Mild Unverified 07/13/22 09:58 Consultations 07/13/22 11:42 ED Decision to Admit Stat 07/16/22 08:58 Consult Infectious Diseases Routine 07/17/22 09:13 Consult Gastroenterology Routine Procedures Performed Operation Date: 07/18/22 16:55 Actual Procedures p EGD Dilatation - Samaria Cochran MD Ordered Studies 07/13/22 09:25 CT Abd and Pelvis [CT abd pelvis IV con only] Stat FINDINGS: Lung bases are unremarkable. There is apparent circumferential wall thickening of the esophagus. A small hiatal hernia is present. Liver, spleen, adrenal glands, right kidney are unremarkable. There is no pneumatosis, free air or portal venous gas. A cyst within the upper pole of the left kidney is noted. Pancreatic glandular atrophy is noted. No biliary or pancreatic ductal dilatation is present. The appendix is normal. The caliber and wall thickness of small and large bowel are normal. There is no lymphadenopathy. There is no ascites. No suspicious osseous lesions are present. Right femoral internal fixation is incidentally noted. IMPRESSION: 1. No acute process within the abdomen or pelvis. 2. Circumferential wall thickening of the distal esophagus. Although this could be due to underdistention, esophagitis could appear similar. Small hiatal hernia. 3. No bowel obstruction. No bowel wall thickening. 07/19/22 08:30 FL barium swallow Routine FINDINGS: Severe esophageal dysmotility was noted. No esophageal mass or stricture was identified. Patient was unable to swallow the 13 mm barium tablet. No reflux was elicited. No hiatal hernia was identified. IMPRESSION: 1. Severe esophageal dysmotility. 2. No esophageal mass or stricture identified. 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 He is being managed for the following: Acute hyponatremia Poor appetite x2 weeks at presentation Circumferential wall thickening of esophagus on CT scan Generalized weakness Admitting sodium of 126, serum osmolality 283, urine sodium 23 and urine osmolality 477. No prior history of hyponatremia on outpatient chart review 07/14, sodium ranged from 1 37-1 40 during 2019 to 2022. Correlates w. 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 Home hydrochlorothiazide on hold, encourage p.o. intake. PT/OT, consulted support worker, low albumin, low prealb drank his protein shakes and milk yesterday. Na 131 today Pt now w/ complain of difficulty swallowing solid food; has early satiety. GI consulted given no prior cancer screening. Underwent EGD with GI, and also had speech eval. Has esophageal dysmotility. Discussed with GI, plan to follow-up as outpatient, appointment already scheduled for July 26. Anemia: Outpatient chart review 07/14 with hemoglobin of 14.6 to 16.0 from [id number]. Admitting hemoglobin 11.8, MCV normal. Iron 18 and transferrin less than 95, ferritin appears elevated likely could be acute phase reactant, folate normal, vitamin B12 low normal. Started iron supplement and vitamin B12 supplement on 07/14. Leukocytosis Abnormal urinalysis Esophagitis Admitting Urine shows positive nitrites, leukocyte esterase but negative bacteria He received 2 g Rocephin in ED on 07/13, will continue for now until blood and urine culture results 07/13 Urine Cx: mixed mohit 07/13 blood cx: NG 48 hours 07/15 Bl Cx (sent because pt feeling lousy/sweaty/borderline temp around the time but no specific symptom): NG 48 hrs Resent Urine Cx 07/15 - no growth WBC stalled around 14-15K, procal remains elevated (but no baseline this admission), had one time temp of 38.3C on 07/15, Rocephin and metron DC'd, zosyn since 07/16, consult ID. ----> finally WBC trending down and temp better;infection workup so far negative. ID consulted - recommend to stop Abx Elevated troponin/demand ischemia secondary to acute illness At admission, patient denies chest pain, shortness of breath or exertional symptoms Admitting EKG was with t wave inversion II and III and aVF. Troponin trend downtrending and normal. 07/14 echo with EF 60 to 65%, LV size and systolic function normal. Patient remains chest pain-free. Prolonged QTC: 527 at presentation, 415 on repeat EKG on following day. Avoid QTc prolonging meds. Abnormal CT scan Circumferential wall thickening of esophagus, possible esophagitis Could be possible source of patient's decreased intake although denies any GERD symptoms c/w PPI started at admission, continue to monitor. GI on board, appreciate recs. as above Insulin-dependent T2DM: SSI while inpatient. A1c of 7.3 on 06/29/2022. Hypertension: Continue lisinopril but hold HCTZ in setting of hyponatremia, if no improvement in Na, consider holding lisinopril as well STOPPED HCTZ on discharge as well. Hyperlipidemia: Continue statin Total Time Total Time Spent Total Time Spent (In Minutes): 40 Discharge Plan Discharge Items Patient Disposition: Home - Self-Care Reason For Visit: UNABLE TO EAT FOR 2 WEEKS, LETHARGIC Discharge Diagnosis: weakness, possible UTI Activity: Per Instructions section Non-emergency contact: Primary Care Provider and Program Developer Call non-emergency contact if: you have any medication questions and your symptoms worsen Follow-up/Referrals: Samaria Cochran MD [Physician] - (Date & Time 07/26/2022 2:00 PM Provider Nurse Gastro [facility] Department Gastroenterology, [facility], [place] ) Milka Allison MD [Primary Care Provider] - (Date & Time 07/25/2022 4:00 PM Provider Milka Allison MD Department General Internal Medicine [facility] ) Diet: Carb Consistent or DM2 and Full liquid Addtl Attending Provider Instructions: Follow up with primary care doctor and Gastroenterology. The appointment with [facility] gastroenterology was scheduled for you for July 26, at 2 PM at [facility]. You will be called about this appointment to give you further instructions. The appointment with primary care physician was scheduled for you for July 25. Stop taking hydrochlorothiazide. Recommend taking probiotics, and/or eating yogurt. Also recommend taking iron and vit. B12 supplement. Do not take iron on an empty stomach. Pending Studies at Discharge: Yes Studies:: final cultx Stand-Alone Forms: My [facility], Smoking Cessation Medications and DC Order Prescriptions: New ferrous sulfate 325 mg (65 mg iron) Tablet,Delayed Release (Dr/Ec) 325 mg PO QAM Qty: 30 0RF cyanocobalamin (vitamin B-12) [Vitamin B-12] 100 mcg Tablet 100 mcg PO QAM Qty: 30 0RF Continued pravastatin 10 mg tablet 10 mg PO QAM Novolin R Regular U-100 Insuln 100 unit/mL solution 6 unit subcut QDD Novolin R Regular U-100 Insuln 100 unit/mL solution 8 unit subcut QAM Novolin N NPH U-100 Insulin 100 unit/mL suspension 14 unit SUBCUT BID lisinopril 30 mg tablet 30 mg PO QAM metformin 500 mg tablet extended release 24 hr 1,000 mg PO QDD PreserVision AREDS 2,148 mcg-113 mg-45 mg-17.4mg Tablet 1 tab PO QAM Rx Instructions: administer with AM and PM meals aspirin 81 mg Capsule 81 mg PO DAILY Discontinued hydrochlorothiazide 12.5 mg capsule 12.5 mg PO DAILY Discharge Orders: Discharge Order (Routine); Ordered 07/20/22 Ordered By: Yousuf Davis Admission Data Admit Date/Time: 07/13/22 11:58 Attending Provider: Yousuf Davis Admit Provider: Madhuri Mata I. Primary Care Provider: Milka Allison Other Providers: Madhuri Mata I. ; Alberto Ohara ; Declan Ramos ; Palmer Florez I. ; Willie Bello II ; Sharyn Merritt ; Rob Spaulding ; Anatoliy Reno ; Odalys Germain ; Samaria Cochran ; Zachary Champion Other Interventions: Discharge Summary Assessment (RN) Last Done: 07/18/22 13:35
[2022-07-20 07:53] LABS: BUN Creatinine Ratio 12.3 (10-20); Calcium 8.1 mg/dl (8.5-10.1); Creatinine Clr Calc Pharmacy 102.6 ml/min; Est GFR (African American) 108.9 ml/min; Magnesium 1.8 mg/dl (1.7-2.4); Phosphorus 2.5 mg/dl (2.5-4.9); Potassium 4.7 mmol/L (3.5-5.1)
[2022-07-20] MEDS: INSULIN ASPART PER UNIT SC SCH (08:26)
[2022-07-20] MEDS: INSULIN HUMAN NPH SQ SCH (08:26)
[2022-07-20] MEDS: MAGNESIUM OXIDE 400 MG TAB PO SCH (08:27)
[2022-07-20] MEDS: ASPIRIN 81 MG ECTAB PO SCH (08:27)
[2022-07-20] MEDS: DOCUSATE SODIUM/SENNA 50/8.6MG TAB PO SCH (08:27)
[2022-07-20] MEDS: FERROUS SULFATE 325 MG TAB PO SCH (08:27)
[2022-07-20] MEDS: PANTOprazole 40 MG TAB PO SCH (08:27)
[2022-07-20] MEDS: CEROVITE ADV FORMULA TAB PO SCH (08:27)
[2022-07-20] MEDS: PRAVASTATIN SOD 10 MG TAB PO SCH (08:27)
[2022-07-20] MEDS: lisinopril 10 MG TAB PO SCH (08:27)
[2022-07-20] MEDS: CYANOCOBALAMIN (B-12) 100 MCG TABLET PO SCH (08:28)
[2022-07-20] MEDS ORDERED: ADVANCED PROBIOTIC 1250 MG CAPSULE PO SCH (09:00)
[2022-07-21 18:07] LABS: Ehrlichia chaff DNA Bld Negative (Negative)
== END 2022-07-20 11:24 | disposition home or self-care (01) | DRG 641 ==
LOC: ED 08:54 → SUATTDRO 11:58 → 2N 11:58